=== PATIENT | female | born 1950 | race Caucasian/White ===

== ENCOUNTER 2018-06-22 16:22 | Inpatient (IN) | payer MEDICAID, MEDICARE ==
[2018-06-22] MEDS ORDERED: Sodium Chloride 0.9% 1,000 ML IV ONE (16:24)
[2018-06-22] MEDS ORDERED: Pantoprazole 40 MG Vial IVPUSH ONE (16:24)
[2018-06-22] MEDS ORDERED: Sodium Chloride 0.9% 10 ML Syringe FLUSH PRN ×2 (16:24→17:32)
[2018-06-22] MEDS ORDERED: Sodium Chloride 0.9% 2.5 ML Syringe FLUSH PRN ×2 (16:24→17:32)
[2018-06-22] MEDS ORDERED: Sodium Chloride 0.9% 20 ML ONE (16:42)
--- NOTE | 2018-06-22 16:42 | EDM.PDOC ---
ED HPI GENERAL MEDICAL PROBLEM - General Chief Complaint: Gastrointestinal Problem Stated Complaint: DIARRHEA RECTAL BLEEDING Time Seen by Provider: 06/22/18 16:23 Source of Information: Reports: Patient History Limitations: Reports: No Limitations - History of Present Illness INITIAL COMMENTS - FREE TEXT/NARRATIVE: History of present illness: []Patient has had flu symptoms for about a week and rectal bleeding for 4 days. They are from a [place] but are living in a hotel while her works here and [employer]. She has had rectal bleeding before requiring blood transfusions but her doctors in [place] are unable to diagnose the cause of bleeding. Patient has had liquid bloody stools approximately every hour today. Review of systems: As per history of present illness and below otherwise all systems reviewed and negative. Past medical history: As per history of present illness and as reviewed below otherwise noncontributory. Surgical history: As per history of present illness and as reviewed below otherwise noncontributory. Social history: No reported history of drug or alcohol abuse. Family history: As per history of present illness and as reviewed below otherwise noncontributory. Physical exam: General: Well developed, pale.well nourished in NAD HEENT: Atraumatic, normocephalic, pupils reactive, negative for conjunctival pallor or scleral icterus, mucous membranes moist, throat clear, neck supple, nontender, trachea midline. Lungs: Clear to auscultation, breath sounds equal bilaterally, chest nontender. Heart: S1S2, regular, negative for clicks, rubs, or JVD. Abdomen: NABS, Soft, nondistended, nontender. Negative for masses or hepatosplenomegaly. Negative for costovertebral tenderness. Pelvis: Stable nontender. Genitourinary: Deferred. Rectal: Guaiac positive, brown stool no melena or gross blood Extremities: Atraumatic, negative for cords or calf pain. Neurovascular unremarkable. Neuro: Awake, alert, oriented. Cranial nerves II through XII unremarkable. Cerebellum unremarkable. Motor and sensory unremarkable throughout. Exam nonfocal. Skin: Pale, warm and dry Diagnostics: CBC, chemistry, INR, PT, type and cross, lactic acid, chest x-ray-right lateral infiltrate, EKG Therapeutics: IV hydration, blood transfusion packed RBCs, ED Course: Consulted Dr. Connolly and Dr. Barab Impression: Lower GI bleed, pneumonia Prescriptions: Plan: Admit to MedSurg telemetry, transfuse blood, antibiotics Definitive disposition and diagnosis as appropriate pending reevaluation and review of above. Back Pain Score (Numeric/FACES): 6 - Related Data Allergies Allergy/AdvReac Type Severity Reaction Status Date / Time adhesive tape Allergy Itching Verified 06/22/18 20:43 Latex, Natural Rubber Allergy Itching Verified 06/22/18 20:43 Home Meds: Home Meds . [No Known Home Meds] 06/22/18 [History] ED ROS GENERAL - Review of Systems Review Of Systems: ROS reveals no pertinent complaints other than HPI. ED EXAM, GI/ABD - Physical Exam Exam: See Below (History of present illness) Course - Vital Signs Last Recorded V/S: Last Vital Signs Temp 99.0 F 06/23/18 05:46 Pulse 75 06/23/18 05:46 Resp 18 06/23/18 05:46 BP 125/71 06/23/18 05:46 Pulse Ox 94 L 06/23/18 05:46 - Orders/Labs/Meds Orders: Active Orders 24 hr Category Date Time Status Patient Status [ADT] Stat ADT 06/22/18 17:18 Active Verify Patient Consent Obtain [RC] ASDIRECTED Care 06/22/18 17:09 Active Sodium Chloride 0.9% [Saline Flush] Med 06/22/18 16:24 Active 10 ml FLUSH ASDIRECTED PRN Sodium Chloride 0.9% [Saline Flush] Med 06/22/18 16:24 Active 2.5 ml FLUSH ASDIRECTED PRN Saline Lock Insert [OM.PC] Stat Oth 06/22/18 16:24 Ordered Transfuse Red Blood Cells [COMM] Stat Oth 06/22/18 16:52 Ordered Medication Orders Acetaminophen (Tylenol) 650 mg PO Q4H PRN PRN Reason: Pain (Mild 1-3)/fever Albuterol/Ipratropium (Duoneb 3.0-0.5 Mg/3 Ml) 3 ml NEB Q4HRRT PRN PRN Reason: Shortness Of Breath/wheezing Pantoprazole Sodium 80 mg/ (Sodium Chloride) 100 mls @ 10 mls/hr IV Q12H KELVIN Last Admin: 06/23/18 05:50 Dose: 10 mls/hr Infusion: 06/23/18 04:13 Dose: 10 mls/hr Admin: 06/22/18 18:13 Dose: 10 mls/hr Ceftriaxone Sodium 1 gm/ (Sodium Chloride) 50 mls @ 100 mls/hr IV Q24H [facility] Nicotine (Habitrol) 14 mg TRDERM DAILY KELVIN Last Admin: 06/22/18 19:31 Dose: 14 mg Ondansetron HCl (Zofran Odt) 4 mg PO Q4H PRN PRN Reason: nausea, able to take PO Oxycodone HCl (Oxycodone) 5 mg PO Q4H PRN PRN Reason: Pain (moderate 4-6) Last Admin: 06/23/18 03:54 Dose: 5 mg Admin: 06/23/18 00:14 Dose: 5 mg Admin: 06/22/18 18:54 Dose: 5 mg Sodium Chloride (Saline Flush) 10 ml FLUSH ASDIRECTED PRN PRN Reason: Keep Vein Open Sodium Chloride (Saline Flush) 2.5 ml FLUSH ASDIRECTED PRN PRN Reason: Keep Vein Open Labs: Laboratory Tests 06/22/18 06/22/18 06/22/18 Range/Units 16:31 16:31 16:31 WBC 17.19 H (4.0-11.0) K/uL RBC 3.13 L (4.30-5.90) M/uL Hgb 4.4 L* (12.0-16.0) g/dL Hct 17.9 L (36.0-46.0) % MCV 57.2 L (80.0-98.0) fL MCH 14.1 L (27.0-32.0) pg MCHC 24.6 L (31.0-37.0) g/dL RDW Std Deviation 44.5 (28.0-62.0) fl RDW Coeff of Yara 22 H (11.0-15.0) % Plt Count 350 (150-400) K/uL MPV 9.20 (7.40-12.00) fL Add Manual Diff YES Neutrophils % (Manual) 70 (48.0-80.0) % Band Neutrophils % 23 % Lymphocytes % (Manual) 4 L (16.0-40.0) % Monocytes % (Manual) 3 (0.0-15.0) % Nucleated RBC % 0.4 /100WBC Absolute Seg Neuts 12.0 H (1.4-5.7) Band Neutrophils # 4.0 Lymphocytes # (Manual) 0.7 (0.6-2.4) Monocytes # (Manual) 0.5 (0.0-0.8) Nucleated RBCs # 0 K/uL INR APTT (18.6-31.3) SEC Lactate (0.20-2.00) mmol/L Sodium 136 (136-145) mmol/L Potassium 4.6 (3.5-5.1) mmol/L Chloride 104 (98-107) mmol/L Carbon Dioxide 15.8 L (21.0-32.0) mmol/L BUN 35 H (7.0-18.0) mg/dL Creatinine 2.4 H (0.6-1.0) mg/dL Est Cr Clr Drug Dosing TNP Estimated GFR (MDRD) 20.2 ml/min Glucose 113 H (74-106) mg/dL Calcium 9.3 (8.5-10.1) mg/dL Total Bilirubin 0.6 (0.2-1.0) mg/dL AST 40 H (15-37) IU/L ALT 21 (14-63) IU/L Alkaline Phosphatase 92 (46-116) U/L Total Protein 7.2 (6.4-8.2) g/dL Albumin 3.4 (3.4-5.0) g/dL Globulin 3.8 (2.6-4.0) g/dL Albumin/Globulin Ratio 0.9 (0.9-1.6) Lipase 207 (73-393) U/L Blood Type A NEGATIVE Antibody Screen NEGATIVE Crossmatch See Detail 06/22/18 06/22/18 Range/Units 16:31 17:23 WBC (4.0-11.0) K/uL RBC (4.30-5.90) M/uL Hgb (12.0-16.0) g/dL Hct (36.0-46.0) % MCV (80.0-98.0) fL MCH (27.0-32.0) pg MCHC (31.0-37.0) g/dL RDW Std Deviation (28.0-62.0) fl RDW Coeff of Yara (11.0-15.0) % Plt Count (150-400) K/uL MPV (7.40-12.00) fL Add Manual Diff Neutrophils % (Manual) (48.0-80.0) % Band Neutrophils % % Lymphocytes % (Manual) (16.0-40.0) % Monocytes % (Manual) (0.0-15.0) % Nucleated RBC % /100WBC Absolute Seg Neuts (1.4-5.7) Band Neutrophils # Lymphocytes # (Manual) (0.6-2.4) Monocytes # (Manual) (0.0-0.8) Nucleated RBCs # K/uL INR 1.12 APTT 31.8 H (18.6-31.3) SEC Lactate 1.7 (0.20-2.00) mmol/L Sodium (136-145) mmol/L Potassium (3.5-5.1) mmol/L Chloride (98-107) mmol/L Carbon Dioxide (21.0-32.0) mmol/L BUN (7.0-18.0) mg/dL Creatinine (0.6-1.0) mg/dL Est Cr Clr Drug Dosing Estimated GFR (MDRD) ml/min Glucose (74-106) mg/dL Calcium (8.5-10.1) mg/dL Total Bilirubin (0.2-1.0) mg/dL AST (15-37) IU/L ALT (14-63) IU/L Alkaline Phosphatase (46-116) U/L Total Protein (6.4-8.2) g/dL Albumin (3.4-5.0) g/dL Globulin (2.6-4.0) g/dL Albumin/Globulin Ratio (0.9-1.6) Lipase (73-393) U/L Blood Type Antibody Screen Crossmatch Meds: Medications Generic Name Dose Route Start Last Admin Trade Name Freq PRN Reason Stop Dose Admin Acetaminophen 650 mg 06/22/18 17:32 Tylenol PO Q4H PRN Pain (Mild 1-3)/fever Albuterol/Ipratropium 3 ml 06/22/18 17:32 Duoneb 3.0-0.5 Mg/3 Ml NEB Q4HRRT PRN Shortness Of Breath/wheezing Pantoprazole Sodium 80 mg/ 100 mls @ 10 mls/hr 06/22/18 18:00 06/23/18 05:50 Sodium Chloride IV 10 mls/hr Q12H KELVIN Administration Ceftriaxone Sodium 1 gm/ 50 mls @ 100 mls/hr 06/23/18 09:00 Sodium Chloride IV Q24H KELVIN Nicotine 14 mg 06/22/18 17:45 06/22/18 19:31 Habitrol TRDERM 14 mg DAILY KELVIN Administration Ondansetron HCl 4 mg 06/22/18 17:32 Zofran Odt PO Q4H PRN nausea, able to take PO Oxycodone HCl 5 mg 06/22/18 17:32 06/23/18 03:54 Oxycodone PO 5 mg Q4H PRN Administration Pain (moderate 4-6) Sodium Chloride 10 ml 06/22/18 16:24 Saline Flush FLUSH ASDIRECTED PRN Keep Vein Open Sodium Chloride 2.5 ml 06/22/18 16:24 Saline Flush FLUSH ASDIRECTED PRN Keep Vein Open Discontinued Medications Generic Name Dose Route Start Last Admin Trade Name Freq PRN Reason Stop Dose Admin Acetaminophen 650 mg 06/22/18 17:46 06/23/18 00:08 Tylenol PO 06/22/18 17:47 650 mg NOW ONE Administration Diphenhydramine HCl 50 mg 06/22/18 22:00 06/23/18 00:10 Benadryl IVPUSH 06/22/18 22:01 50 mg ONETIME ONE Administration Furosemide 20 mg 06/22/18 22:00 06/23/18 00:09 Lasix IVPUSH 06/22/18 22:01 20 mg ONETIME ONE Administration Furosemide 20 mg 06/23/18 02:00 06/23/18 05:50 Lasix IVPUSH 06/23/18 02:01 20 mg ONETIME ONE Administration Furosemide Confirm 06/23/18 05:39 06/23/18 06:42 Lasix Administered 06/23/18 05:40 Not Given Dose 20 mg .ROUTE .STK-MED ONE Sodium Chloride 1,000 mls @ 999 mls/hr 06/22/18 16:24 06/22/18 16:44 Normal Saline IV 06/22/18 17:24 999 mls/hr .Bolus ONE Administration Sodium Chloride Confirm 06/22/18 16:42 06/22/18 16:48 Normal Saline Administered 06/22/18 16:43 20 mls/hr Dose Administration 20 mls @ as directed .ROUTE .STK-MED ONE Ceftriaxone Sodium/Dextrose 1 50 mls @ 100 mls/hr 06/22/18 17:26 06/22/18 17: 34 gm/ Premix IV 06/22/18 17:55 100 mls/hr ONETIME ONE Administration Ceftriaxone Sodium/Dextrose 1 50 mls @ 100 mls/hr 06/23/18 09:00 gm/ Premix IV Q24H KELVIN Pantoprazole Sodium 80 mg 06/22/18 16:24 06/22/18 16:47 Protonix Iv IVPUSH 06/22/18 16:25 80 mg .BOLUS ONE Administration Sodium Chloride 20 ml 06/22/18 16:45 Normal Saline IV STAT KELVIN Sodium Chloride 10 ml 06/22/18 17:32 Saline Flush FLUSH ASDIRECTED PRN Keep Vein Open Sodium Chloride 2.5 ml 06/22/18 17:32 Saline Flush FLUSH ASDIRECTED PRN Keep Vein Open Departure - Departure Time of Disposition: 07:58 Disposition: Admitted As Inpatient 67 Condition: Fair Clinical Impression: Anemia - Discharge Information *PRESCRIPTION DRUG MONITORING PROGRAM REVIEWED*: No *COPY OF PRESCRIPTION DRUG MONITORING REPORT IN PATIENT SUHAS: No - My Orders Last 24 Hours: My Active Orders 06/22/18 16:24 Sodium Chloride 0.9% [Saline Flush] 10 ml FLUSH ASDIRECTED PRN Sodium Chloride 0.9% [Saline Flush] 2.5 ml FLUSH ASDIRECTED PRN Saline Lock Insert [OM.PC] Stat 06/22/18 16:52 Transfuse Red Blood Cells [COMM] Stat 06/22/18 17:09 Verify Patient Consent Obtain [RC] ASDIRECTED 06/22/18 17:18 Patient Status [ADT] Stat - Assessment/Plan Last 24 Hours: My Active Orders 06/22/18 16:24 Sodium Chloride 0.9% [Saline Flush] 10 ml FLUSH ASDIRECTED PRN Sodium Chloride 0.9% [Saline Flush] 2.5 ml FLUSH ASDIRECTED PRN Saline Lock Insert [OM.PC] Stat 06/22/18 16:52 Transfuse Red Blood Cells [COMM] Stat 06/22/18 17:09 Verify Patient Consent Obtain [RC] ASDIRECTED 06/22/18 17:18 Patient Status [ADT] Stat
[2018-06-22] MEDS ORDERED: Sodium Chloride 0.9% 10 ML SDV IV SCH (16:45)
--- NOTE | 2018-06-22 17:20 | CR ---
HISTORY: Pain. Shortness of breath. TECHNIQUE: Portable frontal view of the chest. COMPARISON: None. FINDINGS: Patient is rotated. Lungs are hyperinflated. Hazy consolidative airspace opacity in the lateral aspect of the right lung. No consolidation on the left. No pleural effusion or pneumothorax. Cardiomediastinal silhouette size is within normal limits for technique. IMPRESSION: Airspace consolidation in the lateral right lung compatible with pneumonia. Follow-up after treatment is recommended to ensure resolution. Hyperinflated lungs. Dictated by Shyam Fong MD @ Jun 22 2018 5:15PM Signed by Dr. Shyam Fong @ Jun 22 2018 5:17PM
[2018-06-22 17:26] LABS: CHLORIDE,CL 104 mmol/L (98-107); SODIUM,NA 136 mmol/L (136-145)
[2018-06-22] MEDS ORDERED: cefTRIAXone 1 GM in Premix Bag 1 BAG IV ONE (17:26)
--- NOTE | 2018-06-22 17:31 | PCM.HP ---
H&P History of Present Illness - General Date of Service: 06/22/18 Admit Problem/Dx: Admission Diagnosis/Problem Admission Diagnosis/Problem Anemia Source of Information: Patient, Family History Limitations: Reports: No Limitations - History of Present Illness Initial Comments - Free Text/Narative: The patient is a 67-year-old lady who had presented to the emergency department secondary to his severe shortness of breath. The patient was found to be profoundly anemic with a hemoglobin of 4.4 g/dL. The patient is from [facility] and she has been here temporarily while her is at work. The patient had a similar episode last year in which she had required 4 units of blood to be transfused. The patient had a complete colonoscopy with workup and was found to have nothing to account for the bleeding. The patient is also a smoker. The patient has denied any dizziness or lightheadedness. She's had no nausea or vomiting. The patient does say that she's had 3 days of what she called bright red rectal bleeding. The patient in the emergency department had normal stool with Hemoccult positive testing. Surgeon was called from the emergency department. Onset of Symptoms: Reports: Gradual Duration of Symptoms: Reports: Week(s): Improves with: Reports: None Worsens with: Reports: None Associated Symptoms: Reports: Shortness of Breath - Related Data Allergies/Adverse Reactions: Allergies Allergy/AdvReac Type Severity Reaction Status Date / Time No Known Allergies Allergy Verified 06/22/18 16:41 Home Medications: Home Meds . [No Known Home Meds] 06/22/18 [History] Past Medical History HEENT History: Reports: None Cardiovascular History: Reports: None Respiratory History: Reports: COPD Gastrointestinal History: Reports: GI Bleed, Other (See Below) Other Gastrointestinal History: rectal bleeding Genitourinary History: Reports: None Musculoskeletal History: Reports: None Neurological History: Reports: None Psychiatric History: Reports: None Endocrine/Metabolic History: Reports: Hypothyroidism Hematologic History: Reports: Anemia, Blood Transfusion(s) Immunologic History: Reports: None Oncologic (Cancer) History: Reports: None Dermatologic History: Reports: None - Infectious Disease History Infectious Disease History: Reports: Chicken Pox, Measles, Mumps Social & Family History - Family History Family Medical History: Noncontributory - Tobacco Use Smoking Status *Q: Current Every Day Smoker Years of Tobacco use: 40 Packs/Tins Daily: 0.5 - Recreational Drug Use Recreational Drug Use: No - Living Situation & Occupation Living situation: Reports: , with Spouse Occupation: Unemployed H&P Review of Systems - Review of Systems: Review Of Systems: See Below General: Reports: Weakness, Fatigue HEENT: Reports: No Symptoms Pulmonary: Reports: Shortness of Breath Cardiovascular: Reports: No Symptoms Gastrointestinal: Reports: Bloody Stool Genitourinary: Reports: No Symptoms Musculoskeletal: Reports: No Symptoms Skin: Reports: Pallor Psychiatric: Reports: No Symptoms Neurological: Reports: No Symptoms Hematologic/Lymphatic: Reports: Anemia, Easy Bleeding Immunologic: Reports: No Symptoms Exam - Exam Exam: See Below - Vital Signs Vital Signs: Last Vital Signs Temp 36.6 C 06/22/18 16:37 Pulse 91 06/22/18 16:59 Resp 20 06/22/18 16:59 BP 109/52 L 06/22/18 16:59 Pulse Ox 98 06/22/18 16:59 - Exam Quality Assessment: Supplemental Oxygen General: Alert, Oriented, Cooperative, Mild Distress HEENT: EACs Clear, EOMI, Nares Patent (Pale), Pupils Equal, Pupils Reactive. No : Conjunctiva Clear (Pallor), Mucosa Moist & [place] Neck: Supple, Trachea Midline Lungs: Clear to Auscultation, Decreased Breath Sounds, Other (Markedly increased AP diameter) Cardiovascular: Regular Rate, Regular Rhythm GI/Abdominal Exam: Normal Bowel Sounds, Soft, Non-Tender, No Distention (Female) Exam: Deferred Rectal (Female) Exam: Deferred Back Exam: No: Normal Inspection (Rotoscoliosis), Full Range of Motion ( Decreased normal range of motion) Extremities: Normal Inspection, Normal Range of Motion, No Pedal Edema Skin: Warm, Dry, Intact Neurological: Cranial Nerves Intact Neuro Extensive - Mental Status: Alert, Oriented x3 Psychiatric: Alert, Normal Affect, Normal Mood - Patient Data Lab Results Last 24 hrs: Laboratory Results - last 24 hr 06/22/18 06/22/18 Range/Units 16:31 17:23 WBC 17.19 H (4.0-11.0) K/uL RBC 3.13 L (4.30-5.90) M/uL Hgb 4.4 L* (12.0-16.0) g/dL Hct 17.9 L (36.0-46.0) % MCV 57.2 L (80.0-98.0) fL MCH 14.1 L (27.0-32.0) pg MCHC 24.6 L (31.0-37.0) g/dL RDW Std Deviation 44.5 (28.0-62.0) fl RDW Coeff of Yara 22 H (11.0-15.0) % Plt Count 350 (150-400) K/uL MPV 9.20 (7.40-12.00) fL Add Manual Diff YES Nucleated RBC % 0.4 /100WBC Nucleated RBCs # 0 K/uL Lactate 1.7 (0.20-2.00) mmol/L Result Diagrams: 06/22/18 16:31 06/22/18 16:31 - Problem List (1) Anemia due to chronic blood loss SNOMED Code(s): 374392252 ICD Code: D50.0 - IRON DEFICIENCY ANEMIA SECONDARY TO BLOOD LOSS (CHRONIC) Status: Acute Priority: High Current Visit: Yes Problem Details: Hemoglobin 4.4 g/dL (2) Pneumonia involving right lung SNOMED Code(s): 976149575 ICD Code: J18.9 - PNEUMONIA, UNSPECIFIED ORGANISM Status: Acute Priority : High Current Visit: Yes Qualifiers: Pneumonia type: due to unspecified organism Lung location: unspecified part of lung Qualified Code(s): J18.9 - Pneumonia, unspecified organism (3) Hypothyroidism (acquired) SNOMED Code(s): 101122495 ICD Code: E03.9 - HYPOTHYROIDISM, UNSPECIFIED Status: Chronic Priority: High Current Visit: Yes (4) Fecal occult blood test positive SNOMED Code(s): 39168424 ICD Code: R19.5 - OTHER FECAL ABNORMALITIES Status: Chronic Priority: High Current Visit: Yes (5) Emphysema of lung SNOMED Code(s): 81727502 ICD Code: J43.9 - EMPHYSEMA, UNSPECIFIED Status: Chronic Priority: High Current Visit: Yes Qualifiers: Emphysema type: unspecified Qualified Code(s): J43.9 - Emphysema, unspecified (6) Renal insufficiency SNOMED Code(s): 391409666, 923974792 ICD Code: N28.9 - DISORDER OF KIDNEY AND URETER, UNSPECIFIED Status: Acute Current Visit: Yes (7) Tobacco abuse SNOMED Code(s): 323466540 ICD Code: Z72.0 - TOBACCO USE Status: Acute Current Visit: Yes Problem List Initiated/Reviewed/Updated: Yes Orders Last 24hrs: Active Orders 24 hr Category Date Time Status Patient Status [ADT] Stat ADT 06/22/18 17:18 Active EKG Documentation Completion [RC] STAT Care 06/22/18 17:13 Active Verify Patient Consent Obtain [RC] ASDIRECTED Care 06/22/18 17:09 Active CBC WITH AUTO DIFF [HEME] Stat Lab 06/22/18 16:31 Results COMPREHENSIVE METABOLIC PN,CMP [CHEM] Stat Lab 06/22/18 16:31 Received CULTURE BLOOD [BC] Stat Lab 06/22/18 17:26 Ordered CULTURE BLOOD [BC] Stat Lab 06/22/18 17:26 Ordered INR,PT,PROTHROMBIN TIME [COAG] Stat Lab 06/22/18 16:31 Received LIPASE [CHEM] Stat Lab 06/22/18 16:31 Received PTT,PARTIAL THROMBOPLSTIN TIME [COAG] Stat Lab 06/22/18 16:31 Received RED BLOOD CELLS LP [BBK] Stat Lab 06/22/18 16:31 Received TYPE AND SCREEN [BBK] Stat Lab 06/22/18 16:31 Received Sodium Chloride 0.9% [Normal Saline] Med 06/22/18 16:45 Active 20 ml IV STAT Sodium Chloride 0.9% [Saline Flush] Med 06/22/18 16:24 Active 10 ml FLUSH ASDIRECTED PRN Sodium Chloride 0.9% [Saline Flush] Med 06/22/18 16:24 Active 2.5 ml FLUSH ASDIRECTED PRN cefTRIAXone [Rocephin in Dextrose,Iso-Osm 1 GM/50 ML] 1 Med 06/22/18 17:26 Active gm Premix Bag 1 bag IV ONETIME Blood Culture x2 Reflex Set [OM.PC] Stat Oth 06/22/18 17:26 Ordered Saline Lock Insert [OM.PC] Stat Oth 06/22/18 16:24 Ordered Transfuse Red Blood Cells [COMM] Stat Oth 06/22/18 16:52 Ordered Medication Orders Ceftriaxone Sodium/Dextrose 1 (gm/ Premix) 50 mls @ 100 mls/hr IV ONETIME ONE Stop: 06/22/18 17:55 Sodium Chloride (Saline Flush) 10 ml FLUSH ASDIRECTED PRN PRN Reason: Keep Vein Open Sodium Chloride (Saline Flush) 2.5 ml FLUSH ASDIRECTED PRN PRN Reason: Keep Vein Open Sodium Chloride (Normal Saline) 20 ml IV STAT KELVIN Assessment/Plan Comment:: The patient is a 67-year-old lady who presented to the emergency department after concern for shortness of breath. The patient was noted to have a hemoglobin of 4.4 g/dL. The patient had 2 units of packed red blood cells ordered through the emergency department. I have ordered 2 additional units of packed red blood cells along with Benadryl 50 mg by mouth along with Tylenol 650 mg by mouth before third set of blood transfusion along with 20 mg of Lasix after the second and fourth units of blood. This is done to prevent flash pulmonary edema. Interestingly, patient does have evidence of a consolidation in her right lateral lung and she'll be treated for pneumonia. I've elected use ceftriaxone for the patient. She also be fluid resuscitated gently as she is also receiving blood products. The patient also has a BUN/creatinine and creatinine of 35 and 2.4 respectively which indicates an estimated GFR of 20 mL/ m. With blood products and fluid resuscitation this should improve. I've ordered repeat laboratory studies for the morning. Patient also has an elevated WBC and this is likely secondary to dehydration rather than sepsis. Her lactate is at 1.7 which points against sepsis. Also the patient's vital signs are normal. Her pulse rate was in the 80s on monitor. Her blood pressure on monitor was 129/84. As a result of these stable vital signs the patient was not placed in ICU but on medical surgery floor as an inpatient. The patient will also not have DVT prophylaxis secondary to active bleeding and risk of fall. The patient also has been strongly counseled with regard to smoking cessation and nicotine patches been afforded for the patient. To help exclude active bleeding I have ordered H&H every 6 hours after blood transfusion in order to monitor for drop in hemoglobin. The patient has been recommended to follow up with primary care physician in [place]. She has also been noncompliant with her medications. She does have a history of hypothyroidism and her medications should be verified and oriented be continued. She is also being kept on telemetry. Her medications will be adjusted as conditions and information indicates.
[2018-06-22] MEDS ORDERED: Acetaminophen 325 MG Tab PO PRN (17:32)
[2018-06-22] MEDS ORDERED: Albuterol/Ipratropium 3.0-0.5 MG/3 ML Neb Soln NEB PRN (17:32)
[2018-06-22] MEDS ORDERED: Ondansetron 4 MG Tab.DIS PO PRN (17:32)
[2018-06-22] MEDS ORDERED: Acetaminophen 325 MG Tab PO ONE (17:46)
[2018-06-22] MEDS: Pantoprazole 80 MG in Sodium Chloride 0.9% 100 ML IV SCH (18:13)
[2018-06-22] MEDS: oxyCODONE 5 MG Tab PO PRN (18:54)
[2018-06-22] MEDS: Nicotine 14 MG/24 Hr Patch TRDERM SCH (19:31)
[2018-06-22] MEDS ORDERED: Furosemide 20 MG/2 ML VIAL IVPUSH ONE (22:00)
[2018-06-22] MEDS ORDERED: diphenhydrAMINE 50 MG/ML SDV IVPUSH ONE (22:00)
[2018-06-23] MEDS: oxyCODONE 5 MG Tab PO PRN ×5 (00:14→22:48)
[2018-06-23] MEDS ORDERED: Furosemide 20 MG/2 ML VIAL IVPUSH ONE (02:00)
[2018-06-23] MEDS ORDERED: Furosemide 20 MG/2 ML VIAL ONE (05:39)
[2018-06-23] MEDS: Pantoprazole 80 MG in Sodium Chloride 0.9% 100 ML IV SCH (05:50)
[2018-06-23] MEDS ORDERED: cefTRIAXone 1 GM in Sodium Chloride 0.9% 50 ML IV SCH ×2 (07:15→09:00)
[2018-06-23] MEDS: Nicotine 14 MG/24 Hr Patch TRDERM SCH (08:05)
[2018-06-23] MEDS ORDERED: cefTRIAXone 1 GM in Premix Bag 1 BAG IV SCH (09:00)
--- NOTE | 2018-06-23 09:17 | PCM.PN ---
- General Info Date of Service: 06/23/18 Subjective Update: Patient is feeling slightly better after getting 4 units of blood transfusion still feeling fatigued and tired. Denying any diarrhea or abdominal pain or shortness of breath currently. - Patient Data Vitals - Most Recent: Last Vital Signs Temp 37.2 C 06/23/18 07:00 Pulse 80 06/23/18 07:00 Resp 20 06/23/18 07:00 BP 144/75 H 06/23/18 07:00 Pulse Ox 94 L 06/23/18 07:00 Weight - Most Recent: 60.781 kg I&O - Last 24 Hours: Intake & Output 06/22/18 06/23/18 06/23/18 22:59 06:59 14:59 Intake Total 365 1735 Output Total 700 Balance 365 1035 Lab Results Last 24 Hours: Laboratory Results - last 24 hr 06/22/18 06/22/18 06/22/18 Range/Units 16:31 16:31 16:31 WBC 17.19 H (4.0-11.0) K/uL RBC 3.13 L (4.30-5.90) M/uL Hgb 4.4 L* (12.0-16.0) g/dL Hct 17.9 L (36.0-46.0) % MCV 57.2 L (80.0-98.0) fL MCH 14.1 L (27.0-32.0) pg MCHC 24.6 L (31.0-37.0) g/dL RDW Std Deviation 44.5 (28.0-62.0) fl RDW Coeff of Yara 22 H (11.0-15.0) % Plt Count 350 (150-400) K/uL MPV 9.20 (7.40-12.00) fL Add Manual Diff YES Neutrophils % (Manual) 70 (48.0-80.0) % Band Neutrophils % 23 % Lymphocytes % (Manual) 4 L (16.0-40.0) % Monocytes % (Manual) 3 (0.0-15.0) % Eosinophils % (Manual) (0.0-7.0) % Nucleated RBC % 0.4 /100WBC Absolute Seg Neuts 12.0 H (1.4-5.7) Band Neutrophils # 4.0 Lymphocytes # (Manual) 0.7 (0.6-2.4) Monocytes # (Manual) 0.5 (0.0-0.8) Eosinophils # (Manual) (0.0-0.7) Nucleated RBCs # 0 K/uL INR APTT (18.6-31.3) SEC Lactate (0.20-2.00) mmol/L Sodium 136 (136-145) mmol/L Potassium 4.6 (3.5-5.1) mmol/L Chloride 104 (98-107) mmol/L Carbon Dioxide 15.8 L (21.0-32.0) mmol/L BUN 35 H (7.0-18.0) mg/dL Creatinine 2.4 H (0.6-1.0) mg/dL Est Cr Clr Drug Dosing TNP Estimated GFR (MDRD) 20.2 ml/min Glucose 113 H (74-106) mg/dL Calcium 9.3 (8.5-10.1) mg/dL Total Bilirubin 0.6 (0.2-1.0) mg/dL AST 40 H (15-37) IU/L ALT 21 (14-63) IU/L Alkaline Phosphatase 92 (46-116) U/L Total Protein 7.2 (6.4-8.2) g/dL Albumin 3.4 (3.4-5.0) g/dL Globulin 3.8 (2.6-4.0) g/dL Albumin/Globulin Ratio 0.9 (0.9-1.6) Lipase 207 (73-393) U/L Blood Type A NEGATIVE Antibody Screen NEGATIVE Crossmatch See Detail 06/22/18 06/22/18 06/23/18 Range/Units 16:31 17:23 06:21 WBC 11.53 H (4.0-11.0) K/uL RBC 4.33 (4.30-5.90) M/uL Hgb 9.3 L (12.0-16.0) g/dL Hct 29.9 L (36.0-46.0) % MCV 69.1 L (80.0-98.0) fL MCH 21.5 L (27.0-32.0) pg MCHC 31.1 (31.0-37.0) g/dL RDW Std Deviation 66.1 H (28.0-62.0) fl RDW Coeff of Yara 26 H (11.0-15.0) % Plt Count 241 (150-400) K/uL MPV (7.40-12.00) fL Add Manual Diff YES Neutrophils % (Manual) 70 (48.0-80.0) % Band Neutrophils % 15 % Lymphocytes % (Manual) 10 L (16.0-40.0) % Monocytes % (Manual) 4 (0.0-15.0) % Eosinophils % (Manual) 1 (0.0-7.0) % Nucleated RBC % 0.4 /100WBC Absolute Seg Neuts 8.1 H (1.4-5.7) Band Neutrophils # 1.7 Lymphocytes # (Manual) 1.2 (0.6-2.4) Monocytes # (Manual) 0.5 (0.0-0.8) Eosinophils # (Manual) 0.1 (0.0-0.7) Nucleated RBCs # 0 K/uL INR 1.12 APTT 31.8 H (18.6-31.3) SEC Lactate 1.7 (0.20-2.00) mmol/L Sodium (136-145) mmol/L Potassium (3.5-5.1) mmol/L Chloride (98-107) mmol/L Carbon Dioxide (21.0-32.0) mmol/L BUN (7.0-18.0) mg/dL Creatinine (0.6-1.0) mg/dL Est Cr Clr Drug Dosing Estimated GFR (MDRD) ml/min Glucose (74-106) mg/dL Calcium (8.5-10.1) mg/dL Total Bilirubin (0.2-1.0) mg/dL AST (15-37) IU/L ALT (14-63) IU/L Alkaline Phosphatase (46-116) U/L Total Protein (6.4-8.2) g/dL Albumin (3.4-5.0) g/dL Globulin (2.6-4.0) g/dL Albumin/Globulin Ratio (0.9-1.6) Lipase (73-393) U/L Blood Type Antibody Screen Crossmatch 06/23/18 Range/Units 06:21 WBC (4.0-11.0) K/uL RBC (4.30-5.90) M/uL Hgb (12.0-16.0) g/dL Hct (36.0-46.0) % MCV (80.0-98.0) fL MCH (27.0-32.0) pg MCHC (31.0-37.0) g/dL RDW Std Deviation (28.0-62.0) fl RDW Coeff of Yara (11.0-15.0) % Plt Count (150-400) K/uL MPV (7.40-12.00) fL Add Manual Diff Neutrophils % (Manual) (48.0-80.0) % Band Neutrophils % % Lymphocytes % (Manual) (16.0-40.0) % Monocytes % (Manual) (0.0-15.0) % Eosinophils % (Manual) (0.0-7.0) % Nucleated RBC % /100WBC Absolute Seg Neuts (1.4-5.7) Band Neutrophils # Lymphocytes # (Manual) (0.6-2.4) Monocytes # (Manual) (0.0-0.8) Eosinophils # (Manual) (0.0-0.7) Nucleated RBCs # K/uL INR APTT (18.6-31.3) SEC Lactate (0.20-2.00) mmol/L Sodium 137 (136-145) mmol/L Potassium 4.1 (3.5-5.1) mmol/L Chloride 106 (98-107) mmol/L Carbon Dioxide 17.2 L (21.0-32.0) mmol/L BUN 33 H (7.0-18.0) mg/dL Creatinine 2.1 H (0.6-1.0) mg/dL Est Cr Clr Drug Dosing 25.28 Estimated GFR (MDRD) 23.6 ml/min Glucose 101 (74-106) mg/dL Calcium 9.1 (8.5-10.1) mg/dL Total Bilirubin 1.6 H (0.2-1.0) mg/dL AST 33 (15-37) IU/L ALT 18 (14-63) IU/L Alkaline Phosphatase 84 (46-116) U/L Total Protein 6.7 (6.4-8.2) g/dL Albumin 3.0 L (3.4-5.0) g/dL Globulin 3.7 (2.6-4.0) g/dL Albumin/Globulin Ratio 0.8 L (0.9-1.6) Lipase (73-393) U/L Blood Type Antibody Screen Crossmatch Tony Results Last 24 Hours: Microbiology 06/23/18 08:45 Stool Occult Blood (TONY) - Final Stool / Feces POSITIVE OCCULT BLOOD Med Orders - Current: Current Medications Acetaminophen (Tylenol) 650 mg PO Q4H PRN PRN Reason: Pain (Mild 1-3)/fever Albuterol/Ipratropium (Duoneb 3.0-0.5 Mg/3 Ml) 3 ml NEB Q4HRRT PRN PRN Reason: Shortness Of Breath/wheezing Bisacodyl (Dulcolax) 20 mg PO ONETIME ONE Stop: 06/23/18 12:01 Pantoprazole Sodium 80 mg/ (Sodium Chloride) 100 mls @ 10 mls/hr IV Q12H [facility] Last Admin: 06/23/18 05:50 Dose: 10 mls/hr Ceftriaxone Sodium 1 gm/ (Sodium Chloride) 50 mls @ 100 mls/hr IV Q24H [facility] Last Admin: 06/23/18 08:06 Dose: 100 mls/hr Nicotine (Habitrol) 14 mg TRDERM DAILY [facility] Last Admin: 06/23/18 08:05 Dose: 14 mg Ondansetron HCl (Zofran Odt) 4 mg PO Q4H PRN PRN Reason: nausea, able to take PO Oxycodone HCl (Oxycodone) 5 mg PO Q4H PRN PRN Reason: Pain (moderate 4-6) Last Admin: 06/23/18 08:12 Dose: 5 mg Polyethylene Glycol (Miralax) 238 gm PO ONETIME ONE Stop: 06/24/18 15:01 Polyethylene Glycol (Miralax) 238 gm PO ONETIME ONE Stop: 06/23/18 17:01 Sodium Chloride (Saline Flush) 10 ml FLUSH ASDIRECTED PRN PRN Reason: Keep Vein Open Sodium Chloride (Saline Flush) 2.5 ml FLUSH ASDIRECTED PRN PRN Reason: Keep Vein Open Discontinued Medications Acetaminophen (Tylenol) 650 mg PO NOW ONE Stop: 06/22/18 17:47 Last Admin: 06/23/18 00:08 Dose: 650 mg Diphenhydramine HCl (Benadryl) 50 mg IVPUSH ONETIME ONE Stop: 06/22/18 22:01 Last Admin: 06/23/18 00:10 Dose: 50 mg Furosemide (Lasix) 20 mg IVPUSH ONETIME ONE Stop: 06/22/18 22:01 Last Admin: 06/23/18 00:09 Dose: 20 mg Furosemide (Lasix) 20 mg IVPUSH ONETIME ONE Stop: 06/23/18 02:01 Last Admin: 06/23/18 05:50 Dose: 20 mg Furosemide (Lasix) Confirm Administered Dose 20 mg .ROUTE .STK-MED ONE Stop: 06/23/18 05:40 Last Admin: 06/23/18 06:42 Dose: Not Given Sodium Chloride (Normal Saline) 1,000 mls @ 999 mls/hr IV .Bolus ONE Stop: 06/22/18 17:24 Last Admin: 06/22/18 16:44 Dose: 999 mls/hr Sodium Chloride (Normal Saline) Confirm Administered Dose 20 mls @ as directed .ROUTE .STK-MED ONE Stop: 06/22/18 16:43 Last Admin: 06/22/18 16:48 Dose: 20 mls/hr Ceftriaxone Sodium/Dextrose 1 (gm/ Premix) 50 mls @ 100 mls/hr IV ONETIME ONE Stop: 06/22/18 17:55 Last Admin: 06/22/18 17:34 Dose: 100 mls/hr Ceftriaxone Sodium/Dextrose 1 (gm/ Premix) 50 mls @ 100 mls/hr IV Q24H KELVIN Pantoprazole Sodium (Protonix Iv) 80 mg IVPUSH .BOLUS ONE Stop: 06/22/18 16:25 Last Admin: 06/22/18 16:47 Dose: 80 mg Sodium Chloride (Normal Saline) 20 ml IV STAT KELVIN Sodium Chloride (Saline Flush) 10 ml FLUSH ASDIRECTED PRN PRN Reason: Keep Vein Open Sodium Chloride (Saline Flush) 2.5 ml FLUSH ASDIRECTED PRN PRN Reason: Keep Vein Open - Exam Quality Assessment: Supplemental Oxygen General: Alert, Oriented Lungs: Clear to Auscultation, Decreased Breath Sounds Cardiovascular: Regular Rate, Regular Rhythm GI/Abdominal Exam: Soft, Non-Tender - Problem List Review Problem List Initiated/Reviewed/Updated: Yes - My Orders Last 24 Hours: My Active Orders 06/23/18 12:00 Bisacodyl [Dulcolax] 20 mg PO ONETIME ONE 06/23/18 17:00 Polyethylene Glycol 3350 [MiraLAX] 238 gm PO ONETIME ONE 06/23/18 Lunch Clear Liquid Diet [DIET] 06/24/18 15:00 Polyethylene Glycol 3350 [MiraLAX] 238 gm PO ONETIME ONE - Plan Plan:: The patient is a 67-year-old lady who presented to the emergency department after concern for shortness of breath. The patient was noted to have a hemoglobin of 4.4 g/dL. The patient had 2 units of packed red blood cells ordered through the emergency department. I have ordered 2 additional units of packed red blood cells along with Benadryl 50 mg by mouth along with Tylenol 650 mg by mouth before third set of blood transfusion along with 20 mg of Lasix after the second and fourth units of blood. This is done to prevent flash pulmonary edema. Interestingly, patient does have evidence of a consolidation in her right lateral lung and she'll be treated for pneumonia. I've elected use ceftriaxone for the patient. She also be fluid resuscitated gently as she is also receiving blood products. The patient also has a BUN/creatinine and creatinine of 35 and 2.4 respectively which indicates an estimated GFR of 20 mL/ m. With blood products and fluid resuscitation this should improve. I've ordered repeat laboratory studies for the morning. Patient also has an elevated WBC and this is likely secondary to dehydration rather than sepsis. Her lactate is at 1.7 which points against sepsis. Also the patient's vital signs are normal. Her pulse rate was in the 80s on monitor. Her blood pressure on monitor was 129/84. As a result of these stable vital signs the patient was not placed in ICU but on medical surgery floor as an inpatient. The patient will also not have DVT prophylaxis secondary to active bleeding and risk of fall. The patient also has been strongly counseled with regard to smoking cessation and nicotine patches been afforded for the patient. To help exclude active bleeding I have ordered H&H every 6 hours after blood transfusion in order to monitor for drop in hemoglobin. The patient has been recommended to follow up with primary care physician in [place]. She has also been noncompliant with her medications. She does have a history of hypothyroidism and her medications should be verified and oriented be continued. She is also being kept on telemetry. Her medications will be adjusted as conditions and information indicates. Problems: #1. Severe anemia likely etiology is lower GI in nature -Patient's hemoglobin has risen to 9.3 since the 4 units of RBC. Patient to receive another unit of RBC with a goal of about 10 for her hemoglobin -Patient has been assessed by general surgery and she'll have a colonoscopy done tomorrow. Patient to have bowel prep done starting today. #2. COPD -Patient to be continued to be followed for her COPD, patient currently on azithromycin 250 mg by mouth dose -Nasal swab for influenza to also be done today -Patient on O2 shall continue to follow and treat as needed.
[2018-06-23] MEDS ORDERED: Bisacodyl 5 MG Tab PO ONE (12:00)
[2018-06-23] MEDS: Azithromycin 250 MG Tab PO SCH (12:17)
--- NOTE | 2018-06-23 12:42 | PCM.CONS ---
H&P History of Present Illness - General Date of Service: 06/23/18 Admit Problem/Dx: Admission Diagnosis/Problem Admission Diagnosis/Problem Anemia Source of Information: Patient History Limitations: Reports: No Limitations - History of Present Illness Initial Comments - Free Text/Narative: Patient is a 67 year old female with a history of GI bleed who presented to the ER with hematochezia and lightheadedness. She complained of bright red liquid stool. Hemoglobin in the emergency room was 4.4. She had a similar bleed approximately 2 years ago. She was living in [place] at the time. She underwent an EGD and colonoscopy and states that both were negative. She does not remember whether she had any benign findings at the time. 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 She has hypothyroidism which she has not been treating. She is a longtime smoker and has features to suggest that she has undiagnosed or untreated COPD. She denies any change in her bowel habits up to this point. She denies any sick contacts. She was given 4 units of blood overnight and her hemoglobin is now 9.3. She's no longer dizzy. Back Pain Score (Numeric/FACES): 6 - Related Data Allergies/Adverse Reactions: Allergies Allergy/AdvReac Type Severity Reaction Status Date / Time adhesive tape Allergy Itching Verified 06/22/18 20:43 Latex, Natural Rubber Allergy Itching Verified 06/22/18 20:43 Home Medications: Home Meds . [No Known Home Meds] 06/22/18 [History] Past Medical History HEENT History: Reports: None Cardiovascular History: Reports: None Respiratory History: Reports: COPD Gastrointestinal History: Reports: GI Bleed, Other (See Below) Other Gastrointestinal History: rectal bleeding Genitourinary History: Reports: None Musculoskeletal History: Reports: None Neurological History: Reports: None Psychiatric History: Reports: None Endocrine/Metabolic History: Reports: Hypothyroidism Hematologic History: Reports: Anemia, Blood Transfusion(s) Immunologic History: Reports: None Oncologic (Cancer) History: Reports: None Dermatologic History: Reports: None - Infectious Disease History Infectious Disease History: Reports: Chicken Pox, Measles, Mumps - Past Surgical History Head Surgeries/Procedures: Reports: None Social & Family History - Family History Family Medical History: Noncontributory - Tobacco Use Smoking Status *Q: Current Every Day Smoker Years of Tobacco use: 40 Packs/Tins Daily: 0.5 - Caffeine Use Caffeine Use: Reports: Soda, Tea - Recreational Drug Use Recreational Drug Use: No - Living Situation & Occupation Living situation: Reports: , with Spouse Occupation: Unemployed H&P Review of Systems - Review of Systems: Review Of Systems: ROS reveals no pertinent complaints other than HPI. Exam - Exam Exam: See Below - Vital Signs Vital Signs: Last Vital Signs Temp 36.4 C 06/23/18 11:00 Pulse 81 06/23/18 11:00 Resp 16 06/23/18 11:00 BP 119/61 06/23/18 11:00 Pulse Ox 95 06/23/18 11:00 Weight: 60.781 kg - Exam Quality Assessment: Supplemental Oxygen General: Alert, Oriented, Cooperative HEENT: Conjunctiva Clear, Mucosa Moist & [place], Pupils Equal, Pupils Reactive Neck: Supple, Trachea Midline Lungs: Clear to Auscultation, Decreased Breath Sounds (To bilateral bases), Other (Patient has a barrel chest and appears to use accessory muscles when breathing. There is no pursed lip breathing. No wheezing.) Cardiovascular: Regular Rate, Regular Rhythm GI/Abdominal Exam: Soft, Non-Tender, No Distention, No Mass (Female) Exam: Normal External Exam Rectal (Female) Exam: Normal Exam, Normal Rectal Tone, Heme - Stool Back Exam: Normal Inspection, Full Range of Motion Extremities: Normal Inspection Skin: Warm, Dry, Intact Neuro Extensive - Mental Status: Alert, Oriented x3 - Patient Data Lab Results Last 24 hrs: Laboratory Results - last 24 hr 06/22/18 06/22/18 06/22/18 Range/Units 16:31 16:31 16:31 WBC 17.19 H (4.0-11.0) K/uL RBC 3.13 L (4.30-5.90) M/uL Hgb 4.4 L* (12.0-16.0) g/dL Hct 17.9 L (36.0-46.0) % MCV 57.2 L (80.0-98.0) fL MCH 14.1 L (27.0-32.0) pg MCHC 24.6 L (31.0-37.0) g/dL RDW Std Deviation 44.5 (28.0-62.0) fl RDW Coeff of Yara 22 H (11.0-15.0) % Plt Count 350 (150-400) K/uL MPV 9.20 (7.40-12.00) fL Add Manual Diff YES Neutrophils % (Manual) 70 (48.0-80.0) % Band Neutrophils % 23 % Lymphocytes % (Manual) 4 L (16.0-40.0) % Monocytes % (Manual) 3 (0.0-15.0) % Eosinophils % (Manual) (0.0-7.0) % Nucleated RBC % 0.4 /100WBC Absolute Seg Neuts 12.0 H (1.4-5.7) Band Neutrophils # 4.0 Lymphocytes # (Manual) 0.7 (0.6-2.4) Monocytes # (Manual) 0.5 (0.0-0.8) Eosinophils # (Manual) (0.0-0.7) Nucleated RBCs # 0 K/uL INR APTT (18.6-31.3) SEC Lactate (0.20-2.00) mmol/L Sodium 136 (136-145) mmol/L Potassium 4.6 (3.5-5.1) mmol/L Chloride 104 (98-107) mmol/L Carbon Dioxide 15.8 L (21.0-32.0) mmol/L BUN 35 H (7.0-18.0) mg/dL Creatinine 2.4 H (0.6-1.0) mg/dL Est Cr Clr Drug Dosing TNP Estimated GFR (MDRD) 20.2 ml/min Glucose 113 H (74-106) mg/dL Calcium 9.3 (8.5-10.1) mg/dL Total Bilirubin 0.6 (0.2-1.0) mg/dL AST 40 H (15-37) IU/L ALT 21 (14-63) IU/L Alkaline Phosphatase 92 (46-116) U/L Total Protein 7.2 (6.4-8.2) g/dL Albumin 3.4 (3.4-5.0) g/dL Globulin 3.8 (2.6-4.0) g/dL Albumin/Globulin Ratio 0.9 (0.9-1.6) Lipase 207 (73-393) U/L Blood Type A NEGATIVE Antibody Screen NEGATIVE Crossmatch See Detail 06/22/18 06/22/18 06/23/18 Range/Units 16:31 17:23 06:21 WBC 11.53 H (4.0-11.0) K/uL RBC 4.33 (4.30-5.90) M/uL Hgb 9.3 L (12.0-16.0) g/dL Hct 29.9 L (36.0-46.0) % MCV 69.1 L (80.0-98.0) fL MCH 21.5 L (27.0-32.0) pg MCHC 31.1 (31.0-37.0) g/dL RDW Std Deviation 66.1 H (28.0-62.0) fl RDW Coeff of Yara 26 H (11.0-15.0) % Plt Count 241 (150-400) K/uL MPV (7.40-12.00) fL Add Manual Diff YES Neutrophils % (Manual) 70 (48.0-80.0) % Band Neutrophils % 15 % Lymphocytes % (Manual) 10 L (16.0-40.0) % Monocytes % (Manual) 4 (0.0-15.0) % Eosinophils % (Manual) 1 (0.0-7.0) % Nucleated RBC % 0.4 /100WBC Absolute Seg Neuts 8.1 H (1.4-5.7) Band Neutrophils # 1.7 Lymphocytes # (Manual) 1.2 (0.6-2.4) Monocytes # (Manual) 0.5 (0.0-0.8) Eosinophils # (Manual) 0.1 (0.0-0.7) Nucleated RBCs # 0 K/uL INR 1.12 APTT 31.8 H (18.6-31.3) SEC Lactate 1.7 (0.20-2.00) mmol/L Sodium (136-145) mmol/L Potassium (3.5-5.1) mmol/L Chloride (98-107) mmol/L Carbon Dioxide (21.0-32.0) mmol/L BUN (7.0-18.0) mg/dL Creatinine (0.6-1.0) mg/dL Est Cr Clr Drug Dosing Estimated GFR (MDRD) ml/min Glucose (74-106) mg/dL Calcium (8.5-10.1) mg/dL Total Bilirubin (0.2-1.0) mg/dL AST (15-37) IU/L ALT (14-63) IU/L Alkaline Phosphatase (46-116) U/L Total Protein (6.4-8.2) g/dL Albumin (3.4-5.0) g/dL Globulin (2.6-4.0) g/dL Albumin/Globulin Ratio (0.9-1.6) Lipase (73-393) U/L Blood Type Antibody Screen Crossmatch 06/23/18 Range/Units 06:21 WBC (4.0-11.0) K/uL RBC (4.30-5.90) M/uL Hgb (12.0-16.0) g/dL Hct (36.0-46.0) % MCV (80.0-98.0) fL MCH (27.0-32.0) pg MCHC (31.0-37.0) g/dL RDW Std Deviation (28.0-62.0) fl RDW Coeff of Yara (11.0-15.0) % Plt Count (150-400) K/uL MPV (7.40-12.00) fL Add Manual Diff Neutrophils % (Manual) (48.0-80.0) % Band Neutrophils % % Lymphocytes % (Manual) (16.0-40.0) % Monocytes % (Manual) (0.0-15.0) % Eosinophils % (Manual) (0.0-7.0) % Nucleated RBC % /100WBC Absolute Seg Neuts (1.4-5.7) Band Neutrophils # Lymphocytes # (Manual) (0.6-2.4) Monocytes # (Manual) (0.0-0.8) Eosinophils # (Manual) (0.0-0.7) Nucleated RBCs # K/uL INR APTT (18.6-31.3) SEC Lactate (0.20-2.00) mmol/L Sodium 137 (136-145) mmol/L Potassium 4.1 (3.5-5.1) mmol/L Chloride 106 (98-107) mmol/L Carbon Dioxide 17.2 L (21.0-32.0) mmol/L BUN 33 H (7.0-18.0) mg/dL Creatinine 2.1 H (0.6-1.0) mg/dL Est Cr Clr Drug Dosing 25.28 Estimated GFR (MDRD) 23.6 ml/min Glucose 101 (74-106) mg/dL Calcium 9.1 (8.5-10.1) mg/dL Total Bilirubin 1.6 H (0.2-1.0) mg/dL AST 33 (15-37) IU/L ALT 18 (14-63) IU/L Alkaline Phosphatase 84 (46-116) U/L Total Protein 6.7 (6.4-8.2) g/dL Albumin 3.0 L (3.4-5.0) g/dL Globulin 3.7 (2.6-4.0) g/dL Albumin/Globulin Ratio 0.8 L (0.9-1.6) Lipase (73-393) U/L Blood Type Antibody Screen Crossmatch Result Diagrams: 06/23/18 06:21 06/23/18 06:21 Tony Results Last 24 hrs: Microbiology 06/23/18 08:45 Stool Occult Blood (TONY) - Final Stool / Feces POSITIVE OCCULT BLOOD Consult PN Assessment/Plan (1) Anemia SNOMED Code(s): 585125064 Code(s): D64.9 - ANEMIA, UNSPECIFIED Current Visit: Yes Problem List Initiated/Reviewed/Updated: Yes My Orders Last 24 Hours: My Active Orders 06/23/18 18:00 Pantoprazole [ProTONIX IV] 40 mg IV Q12H Plan: The patient has signs of a recurrent GI bleed. Given her hematochezia this could be a low-lying: Lesion, diverticulosis, or an AVM. She does complain of severe heartburn that she treats with Zantac. I explained the need for a diagnostic EGD and colonoscopy. We discussed the procedure itself, periprocedural preparation and expected postop course. I discussed the risks which include bleeding infection or damage to surrounding structures including perforation. The patient verbalized understanding and wishes to proceed. She will need to be on a clear liquid diet today and nothing by mouth after 8 AM tomorrow morning. She will be added on as my last case of the day tomorrow so she can have some clear liquids right away in the morning. She will need to do a bowel regimen prior to this. She should take 4 Dulcolax tablets at 10:00. She can drink 119 gm of miralax with 32 oz of fluid/gatorade (not red) at noon and then repeat this at 4:00.
[2018-06-23] MEDS ORDERED: Polyethylene Glycol 3350 Powder 17 GM Packet PO ONE (15:00)
[2018-06-23] MEDS: Pantoprazole 40 MG Vial IV SCH (17:11)
[2018-06-23] MEDS: Polyethylene Glycol 3350 Powder 17 GM Packet PO ONE (23:15)
[2018-06-24] MEDS: Polyethylene Glycol 3350 Powder 17 GM Packet PO ONE (04:42)
[2018-06-24] MEDS: oxyCODONE 5 MG Tab PO PRN (05:49)
[2018-06-24] MEDS: Pantoprazole 40 MG Vial IV SCH ×2 (05:49→18:10)
--- NOTE | 2018-06-24 08:43 | PCM.PN ---
- General Info Date of Service: 06/24/18 Subjective Update: Patient is nothing by mouth awaiting her EGD and colonoscopy. She is complaining of not being able to eat but understands she has to wait until her procedure is done today. Patient does admit to being a little anxious however is present with her who has encouraged her to get the procedures done today. - Patient Data Vitals - Most Recent: Last Vital Signs Temp 36.6 C 06/24/18 08:00 Pulse 76 06/24/18 08:00 Resp 19 06/24/18 08:00 BP 160/86 H 06/24/18 08:00 Pulse Ox 95 06/24/18 08:00 Weight - Most Recent: 60.781 kg I&O - Last 24 Hours: Intake & Output 06/23/18 06/24/18 06/24/18 22:59 06:59 14:59 Intake Total 1640 1700 Output Total 3250 3775 Balance -1610 -2075 Lab Results Last 24 Hours: Laboratory Results - last 24 hr 06/22/18 06/23/18 06/23/18 Range/Units 16:31 16:32 22:00 WBC (4.0-11.0) K/uL RBC (4.30-5.90) M/uL Hgb 11.0 L 11.0 L (12.0-16.0) g/dL Hct 34.2 L 34.6 L (36.0-46.0) % MCV (80.0-98.0) fL MCH (27.0-32.0) pg MCHC (31.0-37.0) g/dL RDW Std Deviation (28.0-62.0) fl RDW Coeff of Yara (11.0-15.0) % Plt Count (150-400) K/uL Neut % (Auto) (48.0-80.0) % Lymph % (Auto) (16.0-40.0) % [place] % (Auto) (0.0-15.0) % Eos % (Auto) (0.0-7.0) % Baso % (Auto) (0.0-1.5) % Neut # (Auto) (1.4-5.7) K/uL Lymph # (Auto) (0.6-2.4) K/uL [place] # (Auto) (0.0-0.8) K/uL Eos # (Auto) (0.0-0.7) K/uL Baso # (Auto) (0.0-0.1) K/uL Nucleated RBC % /100WBC Nucleated RBCs # K/uL Sodium (136-145) mmol/L Potassium (3.5-5.1) mmol/L Chloride (98-107) mmol/L Carbon Dioxide (21.0-32.0) mmol/L BUN (7.0-18.0) mg/dL Creatinine (0.6-1.0) mg/dL Est Cr Clr Drug Dosing mL/min Estimated GFR (MDRD) ml/min Glucose (74-106) mg/dL Calcium (8.5-10.1) mg/dL Total Bilirubin (0.2-1.0) mg/dL AST (15-37) IU/L ALT (14-63) IU/L Alkaline Phosphatase (46-116) U/L Total Protein (6.4-8.2) g/dL Albumin (3.4-5.0) g/dL Globulin (2.6-4.0) g/dL Albumin/Globulin Ratio (0.9-1.6) Blood Type A NEGATIVE Antibody Screen NEGATIVE Crossmatch See Detail 06/24/18 06/24/18 Range/Units 05:25 05:25 WBC 9.85 (4.0-11.0) K/uL RBC 5.22 (4.30-5.90) M/uL Hgb 11.6 L (12.0-16.0) g/dL Hct 36.6 (36.0-46.0) % MCV 70.1 L (80.0-98.0) fL MCH 22.2 L (27.0-32.0) pg MCHC 31.7 (31.0-37.0) g/dL RDW Std Deviation 65.4 H (28.0-62.0) fl RDW Coeff of Yara 26 H (11.0-15.0) % Plt Count 248 (150-400) K/uL Neut % (Auto) 76.5 (48.0-80.0) % Lymph % (Auto) 10.8 L (16.0-40.0) % [place] % (Auto) 11.0 (0.0-15.0) % Eos % (Auto) 1.5 (0.0-7.0) % Baso % (Auto) 0.2 (0.0-1.5) % Neut # (Auto) 7.5 H (1.4-5.7) K/uL Lymph # (Auto) 1.1 (0.6-2.4) K/uL [place] # (Auto) 1.1 H (0.0-0.8) K/uL Eos # (Auto) 0.2 (0.0-0.7) K/uL Baso # (Auto) 0.0 (0.0-0.1) K/uL Nucleated RBC % 0.0 /100WBC Nucleated RBCs # 0 K/uL Sodium 139 (136-145) mmol/L Potassium 3.5 (3.5-5.1) mmol/L Chloride 105 (98-107) mmol/L Carbon Dioxide 19.6 L (21.0-32.0) mmol/L BUN 25 H (7.0-18.0) mg/dL Creatinine 1.9 H (0.6-1.0) mg/dL Est Cr Clr Drug Dosing 27.95 mL/min Estimated GFR (MDRD) 26.4 ml/min Glucose 89 (74-106) mg/dL Calcium 9.5 (8.5-10.1) mg/dL Total Bilirubin 0.7 (0.2-1.0) mg/dL AST 28 (15-37) IU/L ALT 16 (14-63) IU/L Alkaline Phosphatase 91 (46-116) U/L Total Protein 7.0 (6.4-8.2) g/dL Albumin 3.0 L (3.4-5.0) g/dL Globulin 4.0 (2.6-4.0) g/dL Albumin/Globulin Ratio 0.8 L (0.9-1.6) Blood Type Antibody Screen Crossmatch Tony Results Last 24 Hours: Microbiology 06/22/18 18:05 Aerobic Blood Culture - Preliminary Blood - Venous NO GROWTH AFTER 1 DAY Anaerobic Blood Culture - Preliminary NO GROWTH AFTER 1 DAY 06/22/18 18:13 Aerobic Blood Culture - Preliminary Blood - Venous - Lab Draw NO GROWTH AFTER 1 DAY Anaerobic Blood Culture - Preliminary NO GROWTH AFTER 1 DAY 06/23/18 14:26 Influenza Type A Antigen Screen - Final Nasopharyngeal Swab NEGATIVE INFLUENZA A VIRUS AG Influenza Type B Antigen Screen - Final NEGATIVE INFLUENZA B VIRUS AG 06/23/18 08:45 Stool Occult Blood (TONY) - Final Stool / Feces POSITIVE OCCULT BLOOD Med Orders - Current: Current Medications Acetaminophen (Tylenol) 650 mg PO Q4H PRN PRN Reason: Pain (Mild 1-3)/fever Albuterol/Ipratropium (Duoneb 3.0-0.5 Mg/3 Ml) 3 ml NEB Q4HRRT PRN PRN Reason: Shortness Of Breath/wheezing Azithromycin (Zithromax) 250 mg PO Q24H [facility] Last Admin: 06/23/18 12:17 Dose: 250 mg Nicotine (Habitrol) 14 mg TRDERM DAILY [facility] Last Admin: 06/23/18 08:05 Dose: 14 mg Ondansetron HCl (Zofran Odt) 4 mg PO Q4H PRN PRN Reason: nausea, able to take PO Oxycodone HCl (Oxycodone) 5 mg PO Q4H PRN PRN Reason: Pain (moderate 4-6) Last Admin: 06/24/18 05:49 Dose: 5 mg Pantoprazole Sodium (Protonix Iv) 40 mg IV Q12H [facility] Last Admin: 06/24/18 05:49 Dose: 40 mg Sodium Chloride (Saline Flush) 10 ml FLUSH ASDIRECTED PRN PRN Reason: Keep Vein Open Sodium Chloride (Saline Flush) 2.5 ml FLUSH ASDIRECTED PRN PRN Reason: Keep Vein Open Discontinued Medications Acetaminophen (Tylenol) 650 mg PO NOW ONE Stop: 06/22/18 17:47 Last Admin: 06/23/18 00:08 Dose: 650 mg Bisacodyl (Dulcolax) 20 mg PO ONETIME ONE Stop: 06/23/18 12:01 Last Admin: 06/23/18 12:17 Dose: 20 mg Diphenhydramine HCl (Benadryl) 50 mg IVPUSH ONETIME ONE Stop: 06/22/18 22:01 Last Admin: 06/23/18 00:10 Dose: 50 mg Furosemide (Lasix) 20 mg IVPUSH ONETIME ONE Stop: 06/22/18 22:01 Last Admin: 06/23/18 00:09 Dose: 20 mg Furosemide (Lasix) 20 mg IVPUSH ONETIME ONE Stop: 06/23/18 02:01 Last Admin: 06/23/18 05:50 Dose: 20 mg Furosemide (Lasix) Confirm Administered Dose 20 mg .ROUTE .STK-MED ONE Stop: 06/23/18 05:40 Last Admin: 06/23/18 06:42 Dose: Not Given Sodium Chloride (Normal Saline) 1,000 mls @ 999 mls/hr IV .Bolus ONE Stop: 06/22/18 17:24 Last Admin: 06/22/18 16:44 Dose: 999 mls/hr Sodium Chloride (Normal Saline) Confirm Administered Dose 20 mls @ as directed .ROUTE .K-MED ONE Stop: 06/22/18 16:43 Last Admin: 06/22/18 16:48 Dose: 20 mls/hr Ceftriaxone Sodium/Dextrose 1 (gm/ Premix) 50 mls @ 100 mls/hr IV ONETIME ONE Stop: 06/22/18 17:55 Last Admin: 06/22/18 17:34 Dose: 100 mls/hr Pantoprazole Sodium 80 mg/ (Sodium Chloride) 100 mls @ 10 mls/hr IV Q12H [facility] Last Admin: 06/23/18 05:50 Dose: 10 mls/hr Ceftriaxone Sodium/Dextrose 1 (gm/ Premix) 50 mls @ 100 mls/hr IV Q24H [facility] Ceftriaxone Sodium 1 gm/ (Sodium Chloride) 50 mls @ 100 mls/hr IV Q24H [facility] Last Admin: 06/23/18 08:06 Dose: 100 mls/hr Pantoprazole Sodium (Protonix Iv) 80 mg IVPUSH .BOLUS ONE Stop: 06/22/18 16:25 Last Admin: 06/22/18 16:47 Dose: 80 mg Polyethylene Glycol (Miralax) 238 gm PO ONETIME ONE Stop: 06/23/18 15:01 Last Admin: 06/23/18 14:14 Dose: 238 gm Polyethylene Glycol (Miralax) 238 gm PO ONETIME ONE Stop: 06/23/18 19:01 Last Admin: 06/24/18 04:42 Dose: Not Given Sodium Chloride (Normal Saline) 20 ml IV STAT [facility] Sodium Chloride (Saline Flush) 10 ml FLUSH ASDIRECTED PRN PRN Reason: Keep Vein Open Sodium Chloride (Saline Flush) 2.5 ml FLUSH ASDIRECTED PRN PRN Reason: Keep Vein Open - Exam Quality Assessment: Supplemental Oxygen General: Alert, Oriented, Cooperative Lungs: Clear to Auscultation, Normal Respiratory Effort Cardiovascular: Regular Rate, Regular Rhythm GI/Abdominal Exam: Normal Bowel Sounds, Non-Tender Extremities: Normal Inspection, Non-Tender, No Pedal Edema - Problem List Review Problem List Initiated/Reviewed/Updated: Yes - My Orders Last 24 Hours: My Active Orders 06/23/18 10:45 Azithromycin [Zithromax] 250 mg PO Q24H 06/23/18 Lunch Clear Liquid Diet [DIET] 06/24/18 Breakfast NPO After Midnight [Nothing per Oral After Midnight Diet] [DIET] - Plan Plan:: This is a 67-year-old female presenting with acute GI bleed resulting in significant anemia currently the anemia has stabilized at the patient has received a total of 10 units of RBC. Patient is to be evaluated with EGD and scope for possible etiology of her acute GI bleed. Patient also has a history of COPD for which currently she is on O2 supplementation. Problems: #1. Severe anemia likely etiology is lower GI in nature -Patient's hemoglobin has risen to greater than 11; patient is received a total of 5 units of RBC. -Patient currently nothing by mouth awaiting her EGD and colonoscopy for possible etiology of her GI bleed -Shall await the results of the evaluation and proceed per recommendations. #2. COPD with likely pneumonia based on imaging -Patient to be continued to be followed for her COPD, patient currently on azithromycin 250 mg by mouth dose as well as ceftriaxone 1 g every 24 hours -Nasal swab for influenza was negative -Patient on O2 shall continue to follow and treat as needed.
[2018-06-24] MEDS: Nicotine 14 MG/24 Hr Patch TRDERM SCH (09:35)
[2018-06-24] MEDS: Azithromycin 250 MG Tab PO SCH (10:40)
[2018-06-24] MEDS ORDERED: cefTRIAXone 1 GM Vial IM SCH (11:30)
--- NOTE | 2018-06-24 11:46 | PCM.PREANE ---
Preanesthetic Assessment - Anesthesia/Transfusion/Family Hx Anesthesia History: Prior Anesthesia Without Reaction Family History of Anesthesia Reaction: No Transfusion History: Prior Transfusion Without Reaction - Review of Systems General: Weakness, Malaise Pulmonary: Shortness of Breath Gastrointestinal: No Symptoms Neurological: No Symptoms - Physical Assessment NPO Status Date: 06/23/18 O2 Sat by Pulse Oximetry: 95 Respiratory Rate: 18 Temperature: 98.4 F Vital Signs: Last Vital Signs Temp 97.9 F 06/24/18 11:25 Pulse 73 06/24/18 11:25 Resp 18 06/24/18 11:25 BP 160/89 H 06/24/18 11:25 Pulse Ox 95 06/24/18 11:25 Height: 5 ft 7 in Weight: 60.781 kg ASA Class: 3 Mental Status: Alert & Oriented x3 Airway Class: Mallampati = 2 ROM/Head Extension: Full Lungs: Clear to Auscultation, Normal Respiratory Effort Cardiovascular: Regular Rate, Regular Rhythm - Lab Values: Laboratory Last Values WBC 9.85 K/uL (4.0-11.0) 06/24/18 05:25 RBC 5.22 M/uL (4.30-5.90) 06/24/18 05:25 Hgb 11.6 g/dL (12.0-16.0) L 06/24/18 05:25 Hct 36.6 % (36.0-46.0) 06/24/18 05:25 MCV 70.1 fL (80.0-98.0) L 06/24/18 05:25 MCH 22.2 pg (27.0-32.0) L 06/24/18 05:25 MCHC 31.7 g/dL (31.0-37.0) 06/24/18 05:25 RDW Std Deviation 65.4 fl (28.0-62.0) H 06/24/18 05:25 RDW Coeff of Yara 26 % (11.0-15.0) H 06/24/18 05:25 Plt Count 248 K/uL (150-400) 06/24/18 05:25 MPV 9.20 fL (7.40-12.00) 06/22/18 16:31 Neut % (Auto) 76.5 % (48.0-80.0) 06/24/18 05:25 Lymph % (Auto) 10.8 % (16.0-40.0) L 06/24/18 05:25 [place] % (Auto) 11.0 % (0.0-15.0) 06/24/18 05:25 Eos % (Auto) 1.5 % (0.0-7.0) 06/24/18 05:25 Baso % (Auto) 0.2 % (0.0-1.5) 06/24/18 05:25 Neut # (Auto) 7.5 K/uL (1.4-5.7) H 06/24/18 05:25 Lymph # (Auto) 1.1 K/uL (0.6-2.4) 06/24/18 05:25 [place] # (Auto) 1.1 K/uL (0.0-0.8) H 06/24/18 05:25 Eos # (Auto) 0.2 K/uL (0.0-0.7) 06/24/18 05:25 Baso # (Auto) 0.0 K/uL (0.0-0.1) 06/24/18 05:25 Add Manual Diff YES 06/23/18 06:21 Neutrophils % (Manual) 70 % (48.0-80.0) 06/23/18 06:21 Band Neutrophils % 15 % 06/23/18 06:21 Lymphocytes % (Manual) 10 % (16.0-40.0) L 06/23/18 06:21 Monocytes % (Manual) 4 % (0.0-15.0) 06/23/18 06:21 Eosinophils % (Manual) 1 % (0.0-7.0) 06/23/18 06:21 Nucleated RBC % 0.0 /100WBC 06/24/18 05:25 Absolute Seg Neuts 8.1 (1.4-5.7) H 06/23/18 06:21 Band Neutrophils # 1.7 06/23/18 06:21 Lymphocytes # (Manual) 1.2 (0.6-2.4) 06/23/18 06:21 Monocytes # (Manual) 0.5 (0.0-0.8) 06/23/18 06:21 Eosinophils # (Manual) 0.1 (0.0-0.7) 06/23/18 06:21 Nucleated RBCs # 0 K/uL 06/24/18 05:25 INR 1.12 06/22/18 16:31 APTT 31.8 SEC (18.6-31.3) H 06/22/18 16:31 Lactate 1.7 mmol/L (0.20-2.00) 06/22/18 17:23 Sodium 139 mmol/L (136-145) 06/24/18 05:25 Potassium 3.5 mmol/L (3.5-5.1) 06/24/18 05:25 Chloride 105 mmol/L (98-107) 06/24/18 05:25 Carbon Dioxide 19.6 mmol/L (21.0-32.0) L 06/24/18 05:25 BUN 25 mg/dL (7.0-18.0) H 06/24/18 05:25 Creatinine 1.9 mg/dL (0.6-1.0) H 06/24/18 05:25 Est Cr Clr Drug Dosing 27.95 mL/min 06/24/18 05:25 Estimated GFR (MDRD) 26.4 ml/min 06/24/18 05:25 Glucose 89 mg/dL (74-106) 06/24/18 05:25 Calcium 9.5 mg/dL (8.5-10.1) 06/24/18 05:25 Total Bilirubin 0.7 mg/dL (0.2-1.0) 06/24/18 05:25 AST 28 IU/L (15-37) 06/24/18 05:25 ALT 16 IU/L (14-63) 06/24/18 05:25 Alkaline Phosphatase 91 U/L (46-116) 06/24/18 05:25 Total Protein 7.0 g/dL (6.4-8.2) 06/24/18 05:25 Albumin 3.0 g/dL (3.4-5.0) L 06/24/18 05:25 Globulin 4.0 g/dL (2.6-4.0) 06/24/18 05:25 Albumin/Globulin Ratio 0.8 (0.9-1.6) L 06/24/18 05:25 Lipase 207 U/L (73-393) 06/22/18 16:31 Blood Type A NEGATIVE 06/22/18 16:31 Antibody Screen NEGATIVE 06/22/18 16:31 Crossmatch See Detail 06/22/18 16:31 - Allergies Allergies/Adverse Reactions: Allergies Allergy/AdvReac Type Severity Reaction Status Date / Time adhesive tape Allergy Itching Verified 06/22/18 20:43 Latex, Natural Rubber Allergy Itching Verified 06/22/18 20:43 - Blood Blood Available: No - Anesthesia Plan Pre-Op Medication Ordered: None - Acknowledgements Anesthesia Type Planned: General Anesthesia Pt an Appropriate Candidate for the Planned Anesthesia: Yes Alternatives and Risks of Anesthesia Discussed w Pt/Guardian: Yes Pt/Guardian Understands and Agrees with Anesthesia Plan: Yes Additional Comments: PMH: recent GI bleed, Hb 4 tp 11 post transfusion, COPD not requiring home O2 but limiting activity, 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 PLAN: mac/tiva PreAnesthesia Questionnaire HEENT History: Reports: None Cardiovascular History: Reports: None Respiratory History: Reports: COPD Gastrointestinal History: Reports: GI Bleed, Other (See Below) Other Gastrointestinal History: rectal bleeding Genitourinary History: Reports: None Musculoskeletal History: Reports: None Neurological History: Reports: None Psychiatric History: Reports: None Endocrine/Metabolic History: Reports: Hypothyroidism Hematologic History: Reports: Anemia, Blood Transfusion(s) Immunologic History: Reports: None Oncologic (Cancer) History: Reports: None Dermatologic History: Reports: None - Infectious Disease History Infectious Disease History: Reports: Chicken Pox, Measles, Mumps - Past Surgical History Head Surgeries/Procedures: Reports: None - SUBSTANCE USE Smoking Status *Q: Current Every Day Smoker Tobacco Use Within Last Twelve Months: Cigarettes Recreational Drug Use History: No - HOME MEDS Home Medications: Home Meds . [No Known Home Meds] 06/22/18 [History] - CURRENT (IN HOUSE) MEDS Current Meds: Current Medications Acetaminophen (Tylenol) 650 mg PO Q4H PRN PRN Reason: Pain (Mild 1-3)/fever Albuterol/Ipratropium (Duoneb 3.0-0.5 Mg/3 Ml) 3 ml NEB Q4HRRT PRN PRN Reason: Shortness Of Breath/wheezing Azithromycin (Zithromax) 250 mg PO Q24H [facility] Last Admin: 06/24/18 10:40 Dose: Not Given Ceftriaxone Sodium 1 gm/ (Sodium Chloride) 50 mls @ 100 mls/hr IV Q24H [facility] Nicotine (Habitrol) 14 mg TRDERM DAILY [facility] Last Admin: 06/24/18 09:35 Dose: 14 mg Ondansetron HCl (Zofran Odt) 4 mg PO Q4H PRN PRN Reason: nausea, able to take PO Oxycodone HCl (Oxycodone) 5 mg PO Q4H PRN PRN Reason: Pain (moderate 4-6) Last Admin: 06/24/18 05:49 Dose: 5 mg Pantoprazole Sodium (Protonix Iv) 40 mg IV Q12H [facility] Last Admin: 06/24/18 05:49 Dose: 40 mg Sodium Chloride (Saline Flush) 10 ml FLUSH ASDIRECTED PRN PRN Reason: Keep Vein Open Sodium Chloride (Saline Flush) 2.5 ml FLUSH ASDIRECTED PRN PRN Reason: Keep Vein Open Discontinued Medications Acetaminophen (Tylenol) 650 mg PO NOW ONE Stop: 06/22/18 17:47 Last Admin: 06/23/18 00:08 Dose: 650 mg Bisacodyl (Dulcolax) 20 mg PO ONETIME ONE Stop: 06/23/18 12:01 Last Admin: 06/23/18 12:17 Dose: 20 mg Ceftriaxone Sodium (Rocephin) 1 gm IM Q24H [facility] Diphenhydramine HCl (Benadryl) 50 mg IVPUSH ONETIME ONE Stop: 06/22/18 22:01 Last Admin: 06/23/18 00:10 Dose: 50 mg Furosemide (Lasix) 20 mg IVPUSH ONETIME ONE Stop: 06/22/18 22:01 Last Admin: 06/23/18 00:09 Dose: 20 mg Furosemide (Lasix) 20 mg IVPUSH ONETIME ONE Stop: 06/23/18 02:01 Last Admin: 06/23/18 05:50 Dose: 20 mg Furosemide (Lasix) Confirm Administered Dose 20 mg .ROUTE .STK-MED ONE Stop: 06/23/18 05:40 Last Admin: 06/23/18 06:42 Dose: Not Given Sodium Chloride (Normal Saline) 1,000 mls @ 999 mls/hr IV .Bolus ONE Stop: 06/22/18 17:24 Last Admin: 06/22/18 16:44 Dose: 999 mls/hr Sodium Chloride (Normal Saline) Confirm Administered Dose 20 mls @ as directed .ROUTE .STK-MED ONE Stop: 06/22/18 16:43 Last Admin: 06/22/18 16:48 Dose: 20 mls/hr Ceftriaxone Sodium/Dextrose 1 (gm/ Premix) 50 mls @ 100 mls/hr IV ONETIME ONE Stop: 06/22/18 17:55 Last Admin: 06/22/18 17:34 Dose: 100 mls/hr Pantoprazole Sodium 80 mg/ (Sodium Chloride) 100 mls @ 10 mls/hr IV Q12H [facility] Last Admin: 06/23/18 05:50 Dose: 10 mls/hr Ceftriaxone Sodium/Dextrose 1 (gm/ Premix) 50 mls @ 100 mls/hr IV Q24H [facility] Ceftriaxone Sodium 1 gm/ (Sodium Chloride) 50 mls @ 100 mls/hr IV Q24H [facility] Last Admin: 06/23/18 08:06 Dose: 100 mls/hr Pantoprazole Sodium (Protonix Iv) 80 mg IVPUSH .BOLUS ONE Stop: 06/22/18 16:25 Last Admin: 06/22/18 16:47 Dose: 80 mg Polyethylene Glycol (Miralax) 238 gm PO ONETIME ONE Stop: 06/23/18 15:01 Last Admin: 06/23/18 14:14 Dose: 238 gm Polyethylene Glycol (Miralax) 238 gm PO ONETIME ONE Stop: 06/23/18 19:01 Last Admin: 06/24/18 04:42 Dose: Not Given Sodium Chloride (Normal Saline) 20 ml IV STAT [facility] Sodium Chloride (Saline Flush) 10 ml FLUSH ASDIRECTED PRN PRN Reason: Keep Vein Open Sodium Chloride (Saline Flush) 2.5 ml FLUSH ASDIRECTED PRN PRN Reason: Keep Vein Open
[2018-06-24] MEDS: cefTRIAXone 1 GM in Sodium Chloride 0.9% 50 ML IV SCH (12:57)
[2018-06-24] MEDS ORDERED: Propofol 200 MG/20 ML SDV ONE (13:23)
[2018-06-24] MEDS ORDERED: fentaNYL 100 MCG/2 ML SDV ONE (13:23)
[2018-06-24] MEDS ORDERED: Midazolam 1 MG/ML 2 ML SDV ONE (13:23)
--- NOTE | 2018-06-24 14:35 | PCM.OPNOTE ---
- General Post-Op/Procedure Note Date of Surgery/Procedure: 06/24/18 Operative Procedure(s): Diagnostic EGD and Colonoscopy Findings: A. Duodenal polyp x1, Gastric biopsies and severe esophagitis. B. Cecal AVM x1, rectal polyps x2. Pre Op Diagnosis: GI bleed Post-Op Diagnosis: duodenal polyp x1, severe esophagitis, cecal AVM x1 and rectal polyps x2. Anesthesia Technique: MAC EBL in mLs: 0 Complications: None Condition: Good Free Text/Narrative:: Intake & Output 06/23/18 06/24/18 06/24/18 22:59 06:59 14:59 Intake Total 1640 1700 50 Output Total 3250 4975 Balance -0502 -5117 50
--- NOTE | 2018-06-24 14:57 | PCM.POSTAN ---
POST ANESTHESIA ASSESSMENT - MENTAL STATUS Mental Status: Alert, Oriented - RESPIRATORY Respiratory Status: Respiratory Rate WNL, Airway Patent, O2 Saturation Stable - CARDIOVASCULAR CV Status: Pulse Rate WNL, Blood Pressure Stable - GASTROINTESTINAL GI Status: No Symptoms - POST OP HYDRATION Hydration Status: Adequate & Stable (ok for transfer to floor on 2 liters of O2 per nasal cannulae if sats remain over 90 %)
--- NOTE | 2018-06-24 15:13 | PCM.SN ---
- Free Text/Narrative Note: Patient is a 67 year old female who presented with a GI bleed. I performed a diagnostic EGD and colonoscopy. She had what appeared to be hyperplastic polyps in the first portion of her duodenum. One of these was biopsied. The stomach appeared normal but biopsies were performed there as well. She appeared to have severe inflammation just above the GE junction consitent with GERD and esophagitis. A biopsy was taken. Colonoscopically, she had two rectal polyps. In the cecum there was a small lesion that appeared to be an AVM. The patients prep was fiar to poor and I had to perform a large amount of irrigation to safely pass my scope through. There was no stigmata of bleeding and no clot on the AVM however this may have been washed away. A photo of this was taken. The patient can eat and drink. I would start her on Protonix 40mg qac. I talked to her but will see her in the morning. If she is stable in the am I would be ok with discharging her at that time, but would like her monitored overnight. Please call with questions.
[2018-06-25] MEDS: oxyCODONE 5 MG Tab PO PRN (05:38)
[2018-06-25] MEDS: Pantoprazole 40 MG Vial IV SCH (05:40)
[2018-06-25] MEDS: Nicotine 14 MG/24 Hr Patch TRDERM SCH (10:18)
[2018-06-25] MEDS: Azithromycin 250 MG Tab PO SCH (10:21)
[2018-06-25] MEDS: cefTRIAXone 1 GM in Sodium Chloride 0.9% 50 ML IV SCH (11:33)
--- NOTE | 2018-06-25 11:35 | PCM.DCSUM1 ---
Discharge Summary - Hospital Course HPI Initial Comments: Discharge Summary Date of admission: 06/22/18 Date of discharge: 06/25/18 Admitting diagnosis: #1. Severe acute anemia in the setting of acute GI bleed with a microcytic iron deficiency anemia on laboratory evaluation #2. Underlying COPD with possible pneumonia exacerbation #3. Hypothyroidism history noncompliant with medications Discharge diagnoses: #1. Acute anemia now resolved, patient status post EGD and colonoscopy as well as with a total of 5 units of pRBC; no further bleeding #2. COPD with pneumonia exacerbation now resolving discharged home on oral antibiotics #3. Hypothyroidism #4. #5. Consultations: Gen. surgery-Dr. Mercer Procedures: EGD colonoscopy Hospitalization course: patient was admitted on 06/22/18 secondary to severe acute anemia and acute GI bleed. Patient was over the course of 24 hours given a total of 4 units of RBC which brought her hemoglobin from 4 to just above 9. General surgery assess the patient in the a.m. and decided that the patient would benefit from an EGD colonoscopy for further assessment of her GI bleeding issues. Patient was given another unit of blood on day 2 of admission her hemoglobin then stabilized at 11.4. On 06/24/18 patient received a colonoscopy and EGD which showed acid reflux changes of the esophagus, no ulcerations in the stomach lining however biopsies were taken and to hyper plastic polyps in the duodenum as well for a colonoscopy standpoint it was an area of AV malformation as well as 2 polyps biopsied in the rectum. Patient tolerated the procedure well and was stable from general surgery standpoint her diet was then progressed was started on IV Protonix and 06/25/18 was stable enough to be discharged home. Patient does have a history of hypothyroidism for which she has not taken her hypothyroid medications for at least a year. Patient's TSH was greater than 39 end free T4 was low at 0.64. Patient was subsequently discharged home with instructions to follow-up with Dr. Mercer in 2 weeks for biopsy results as well as strict instructions to establish care with a primary care provider in [facility] where the patient lives. Patient was sent home on 3 days of azithromycin 250 by mouth, Protonix 40 mg by mouth daily, oral iron tablets, Advair inhaler, albuterol inhaler, and was restarted on levothyroxine 25 mcg daily with instructions to follow-up with her primary care for titration of dose. Diagnosis: Stroke: No Modified Yuliya Scale: No Symptoms at All Modified Yuliya Scale Score: 0 - Discharge Data Discharge Date: 06/25/18 Discharge Disposition: Home, Self-Care 01 Condition: Good - Patient Summary/Data Operative Procedure(s) Performed: Diagnostic EGD and Colonoscopy Consults: Consultations 06/22/18 17:32 Consult to Physician [CONS] Routine - Patient Instructions Diet: Usual Diet as Tolerated Activity: As Tolerated Driving: Do Not Drive Showering/Bathing: May Shower Wound/Incision Care: Keep Operative Site/Wound Site Clean and Dry Notify Provider of: Fever, Increased Pain, Swelling and Redness, Drainage, Nausea and/or Vomiting Other/Special Instructions: Aracelis needs to make sure to get a follow up appt with your PCP in [place] right away. You need to restart your thryoid medications. I have started you on a low dose daily thryoid medication but this will need to be monitered by your PCP in [place]. - Discharge Plan *PRESCRIPTION DRUG MONITORING PROGRAM REVIEWED*: No *COPY OF PRESCRIPTION DRUG MONITORING REPORT IN PATIENT SUHAS: No Prescriptions/Med Rec: Albuterol Sulfate [Proventil Hfa] 6.7 gm IH Q6H PRN 30 Days #1 hfa.[email or web address] PRN Reason: Wheezing Azithromycin [Zithromax] 250 mg PO Q24H 3 Days #3 tablet Fluticasone/Salmeterol [Advair 500-50] 2 puff INH BID 30 Days #1 diskus Iron,Carbonyl/Vit C/Vit B12/Fa [Iron 100 Plus Tablet] 1 each PO DAILY 30 Days # 30 tablet Levothyroxine Sodium [Synthroid] 25 mcg PO DAILY 30 Days #30 tablet Pantoprazole [ProTONIX] 40 mg PO BID 30 Days #60 tab.cr Home Medications: Home Meds Albuterol Sulfate [Proventil Hfa] 6.7 gm IH Q6H PRN 30 Days #1 hfa.[email or web address] [Rx] Azithromycin [Zithromax] 250 mg PO Q24H 3 Days #3 tablet 06/25/18 [Rx] Fluticasone/Salmeterol [Advair 500-50] 2 puff INH BID 30 Days #1 diskus [Rx] Iron,Carbonyl/Vit C/Vit B12/Fa [Iron 100 Plus Tablet] 1 each PO DAILY 30 Days # 30 tablet 06/25/18 [Rx] Levothyroxine Sodium [Synthroid] 25 mcg PO DAILY 30 Days #30 tablet 06/25/18 [Rx ] Pantoprazole [ProTONIX] 40 mg PO BID 30 Days #60 tab.cr 06/25/18 [Rx] Oxygen Therapy Mode: Room Air Referrals: Keya Baeza MD [Physician] - (Follow-up in 2 weeks) PCP,Not In Area [Primary Care Provider] - - Discharge Summary/Plan Comment DC Time >30 min.: No - Patient Data Vitals - Most Recent: Last Vital Signs Temp 36.8 C 06/25/18 08:07 Pulse 78 06/25/18 08:07 Resp 18 06/25/18 08:07 BP 175/82 H 06/25/18 08:07 Pulse Ox 93 L 06/25/18 08:07 Weight - Most Recent: 60.781 kg I&O - Last 24 hours: Intake & Output 06/24/18 06/25/18 06/25/18 22:59 06:59 14:59 Intake Total 120 690 Output Total 300 200 Balance -180 490 Lab Results - Last 24 hrs: Laboratory Results - last 24 hr 06/25/18 06/25/18 06/25/18 Range/Units 05:00 05:00 05:00 WBC 8.80 (4.0-11.0) K/uL RBC 5.20 (4.30-5.90) M/uL Hgb 11.4 L (12.0-16.0) g/dL Hct 36.6 (36.0-46.0) % MCV 70.4 L (80.0-98.0) fL MCH 21.9 L (27.0-32.0) pg MCHC 31.1 (31.0-37.0) g/dL RDW Std Deviation 68.8 H (28.0-62.0) fl RDW Coeff of Yara 27 H (11.0-15.0) % Plt Count 240 (150-400) K/uL Neut % (Auto) 73.8 (48.0-80.0) % Lymph % (Auto) 12.3 L (16.0-40.0) % [place] % (Auto) 11.1 (0.0-15.0) % Eos % (Auto) 2.5 (0.0-7.0) % Baso % (Auto) 0.3 (0.0-1.5) % Neut # (Auto) 6.5 H (1.4-5.7) K/uL Lymph # (Auto) 1.1 (0.6-2.4) K/uL [place] # (Auto) 1.0 H (0.0-0.8) K/uL Eos # (Auto) 0.2 (0.0-0.7) K/uL Baso # (Auto) 0.0 (0.0-0.1) K/uL Nucleated RBC % 0.4 /100WBC Nucleated RBCs # 0 K/uL Sodium 139 (136-145) mmol/L Potassium 3.6 (3.5-5.1) mmol/L Chloride 107 (98-107) mmol/L Carbon Dioxide 18.8 L (21.0-32.0) mmol/L BUN 18 (7.0-18.0) mg/dL Creatinine 1.5 H (0.6-1.0) mg/dL Est Cr Clr Drug Dosing 35.40 mL/min Estimated GFR (MDRD) 34.7 ml/min Glucose 92 (74-106) mg/dL Calcium 9.2 (8.5-10.1) mg/dL Total Bilirubin 0.4 (0.2-1.0) mg/dL AST 24 (15-37) IU/L ALT 17 (14-63) IU/L Alkaline Phosphatase 86 (46-116) U/L Total Protein 6.6 (6.4-8.2) g/dL Albumin 2.7 L (3.4-5.0) g/dL Globulin 3.9 (2.6-4.0) g/dL Albumin/Globulin Ratio 0.7 L (0.9-1.6) Free T4 0.64 L (0.76-1.46) ng/dL TSH 3rd Generation 39.33 H (0.36-3.74) uIU/mL ALEXANDER Results - Last 24 hrs: Microbiology 06/22/18 18:05 Aerobic Blood Culture - Preliminary Blood - Venous NO GROWTH AFTER 2 DAYS Anaerobic Blood Culture - Preliminary NO GROWTH AFTER 2 DAYS 06/22/18 18:13 Aerobic Blood Culture - Preliminary Blood - Venous - Lab Draw NO GROWTH AFTER 2 DAYS Anaerobic Blood Culture - Preliminary NO GROWTH AFTER 2 DAYS Med Orders - Current: Current Medications Acetaminophen (Tylenol) 650 mg PO Q4H PRN PRN Reason: Pain (Mild 1-3)/fever Albuterol/Ipratropium (Duoneb 3.0-0.5 Mg/3 Ml) 3 ml NEB Q4HRRT PRN PRN Reason: Shortness Of Breath/wheezing Azithromycin (Zithromax) 250 mg PO Q24H [facility] Last Admin: 06/25/18 10:21 Dose: 250 mg Ceftriaxone Sodium 1 gm/ (Sodium Chloride) 50 mls @ 100 mls/hr IV Q24H [facility] Last Admin: 06/24/18 12:57 Dose: 100 mls/hr Nicotine (Habitrol) 14 mg TRDERM DAILY [facility] Last Admin: 06/25/18 10:18 Dose: 14 mg Ondansetron HCl (Zofran Odt) 4 mg PO Q4H PRN PRN Reason: nausea, able to take PO Oxycodone HCl (Oxycodone) 5 mg PO Q4H PRN PRN Reason: Pain (moderate 4-6) Last Admin: 06/25/18 05:38 Dose: 5 mg Pantoprazole Sodium (Protonix Iv) 40 mg IV Q12H [facility] Last Admin: 06/25/18 05:40 Dose: 40 mg Sodium Chloride (Saline Flush) 10 ml FLUSH ASDIRECTED PRN PRN Reason: Keep Vein Open Sodium Chloride (Saline Flush) 2.5 ml FLUSH ASDIRECTED PRN PRN Reason: Keep Vein Open Discontinued Medications Acetaminophen (Tylenol) 650 mg PO NOW ONE Stop: 06/22/18 17:47 Last Admin: 06/23/18 00:08 Dose: 650 mg Bisacodyl (Dulcolax) 20 mg PO ONETIME ONE Stop: 06/23/18 12:01 Last Admin: 06/23/18 12:17 Dose: 20 mg Ceftriaxone Sodium (Rocephin) 1 gm IM Q24H [facility] Last Admin: 06/24/18 14:14 Dose: Not Given Diphenhydramine HCl (Benadryl) 50 mg IVPUSH ONETIME ONE Stop: 06/22/18 22:01 Last Admin: 06/23/18 00:10 Dose: 50 mg Fentanyl (Sublimaze) Confirm Administered Dose 100 mcg .ROUTE .STK-MED ONE Stop: 06/24/18 13:24 Furosemide (Lasix) 20 mg IVPUSH ONETIME ONE Stop: 06/22/18 22:01 Last Admin: 06/23/18 00:09 Dose: 20 mg Furosemide (Lasix) 20 mg IVPUSH ONETIME ONE Stop: 06/23/18 02:01 Last Admin: 06/23/18 05:50 Dose: 20 mg Furosemide (Lasix) Confirm Administered Dose 20 mg .ROUTE .STK-MED ONE Stop: 06/23/18 05:40 Last Admin: 06/23/18 06:42 Dose: Not Given Sodium Chloride (Normal Saline) 1,000 mls @ 999 mls/hr IV .Bolus ONE Stop: 06/22/18 17:24 Last Admin: 06/22/18 16:44 Dose: 999 mls/hr Sodium Chloride (Normal Saline) Confirm Administered Dose 20 mls @ as directed .ROUTE .STK-MED ONE Stop: 06/22/18 16:43 Last Admin: 06/22/18 16:48 Dose: 20 mls/hr Ceftriaxone Sodium/Dextrose 1 (gm/ Premix) 50 mls @ 100 mls/hr IV ONETIME ONE Stop: 06/22/18 17:55 Last Admin: 06/22/18 17:34 Dose: 100 mls/hr Pantoprazole Sodium 80 mg/ (Sodium Chloride) 100 mls @ 10 mls/hr IV Q12H [facility] Last Admin: 06/23/18 05:50 Dose: 10 mls/hr Ceftriaxone Sodium/Dextrose 1 (gm/ Premix) 50 mls @ 100 mls/hr IV Q24H [facility] Ceftriaxone Sodium 1 gm/ (Sodium Chloride) 50 mls @ 100 mls/hr IV Q24H [facility] Last Admin: 06/23/18 08:06 Dose: 100 mls/hr Lidocaine HCl (Xylocaine-Mpf 1%) Confirm Administered Dose 5 mls @ as directed .ROUTE .STK-MED ONE Stop: 06/24/18 13:23 Midazolam HCl (Versed 1 Mg/Ml) Confirm Administered Dose 2 mg .ROUTE .STK-MED ONE Stop: 06/24/18 13:24 Pantoprazole Sodium (Protonix Iv) 80 mg IVPUSH .BOLUS ONE Stop: 06/22/18 16:25 Last Admin: 06/22/18 16:47 Dose: 80 mg Polyethylene Glycol (Miralax) 238 gm PO ONETIME ONE Stop: 06/23/18 15:01 Last Admin: 06/23/18 14:14 Dose: 238 gm Polyethylene Glycol (Miralax) 238 gm PO ONETIME ONE Stop: 06/23/18 19:01 Last Admin: 06/24/18 04:42 Dose: Not Given Propofol (Diprivan 20 Ml) Confirm Administered Dose 400 mg .ROUTE .STK-MED ONE Stop: 06/24/18 13:24 Sodium Chloride (Normal Saline) 20 ml IV STAT [facility] Sodium Chloride (Saline Flush) 10 ml FLUSH ASDIRECTED PRN PRN Reason: Keep Vein Open Sodium Chloride (Saline Flush) 2.5 ml FLUSH ASDIRECTED PRN PRN Reason: Keep Vein Open *Q Meaningful Use (DIS) - VTE *Q VTE Mechanical Contraindications *Q: At Risk for Falls VTE Pharmacological Contraindications *Q: Risk of Bleeding
--- NOTE | 2018-06-25 11:36 | OR ---
SURGEON: KEYA BAEZA MD DATE OF PROCEDURE: 06/22/2018 PREOPERATIVE DIAGNOSIS: Gastrointestinal bleed. POSTOPERATIVE DIAGNOSES: 1. Duodenal polyp. 2. Severe esophagitis, secondary to reflux. 3. Cecal arteriovenous malformation. 4. Rectal polyp x2. PROCEDURES PERFORMED: Diagnostic esophagogastroduodenoscopy and colonoscopy. ENDOSCOPIST: Keya Baeza MD. ANESTHESIA: MAC. INSTRUMENT USED: Olympus endoscope and colonoscope. EXTENT OF THE EXAM: To the second portion of duodenum, to the cecum. PREPARATION: Fair to poor. LIMITATIONS: None. INDICATION FOR EXAMINATION: The patient is a 67-year-old female who presented to the emergency room with a GI bleed. Her hemoglobin was 4. She was admitted to the hospitalist team and given 4 units of blood. She is resuscitated well and is now stable. She has had no further bleeding episodes. She had a colonoscopy and EGD 1 to 2 years ago, that she claims showed no evidence of a bleeding source. Given this new GI bleed, I explained to her the need for a repeat endoscopic examination. The patient and I discussed the procedures; expected perioperative course; and risks including bleeding, infection, or damage to the surrounding structures, including perforation. The patient verbalized understanding and wishes to proceed. PROCEDURE IN DETAIL: The patient was brought into the endoscopy suite and placed in a beach chair position. A time-out was completed verifying the patient's name, age, date of , allergies, and procedure to be performed. A bite-block was placed in the patient's mouth. Monitored anesthesia care was induced, and continuous oxygen was provided via nasal cannula throughout the procedure. After adequate sedation was achieved, a well-lubricated endoscope was placed in the patient's mouth and advanced under direct visualization to the second portion of duodenum. This appeared normal, and a photograph was taken. The scope was then straightened out and fully withdrawn, while examining the color, texture, anatomy, and integrity of the mucosa of the upper GI tract. The patient was found to have small hyperplastic-appearing polyps throughout the first portion of the duodenum. A biopsy of this was taken using a cold biopsy forceps. The scope was then brought into the stomach. A photograph was taken of the pylorus, as well as the GE junction. Both appeared normal. The gastric mucosa appeared free of gross inflammation or ulceration. Biopsies were taken of the gastric antrum, body, and fundus and sent for histologic review and H. pylori testing. The scope was then brought into the distal esophagus. The patient was noted to have severe esophagitis, and a photograph of this was taken. A biopsy of the inflamed tissue approximately 1 cm above the GE junction was taken. This was sent to Pathology, labeled as esophagus. The remainder of the esophagus appeared mildly inflamed overall, but with no other areas of ulceration or nodularity. The scope was removed, and this portion of the procedure terminated. The patient was placed in the left lateral decubitus position. A digital rectal exam was performed. This exam was within normal limits. A well-lubricated colonoscope was inserted in the rectum and advanced carefully under direct visualization to the level of the cecum. The patient had a large amount of liquid stool in her colon, requiring several liters worth of irrigation in order for me to safely pass the scope through. The cecum was identified by visual and anatomic landmarks. Again, a large amount of irrigation was required to be able to visualize these structures. Once the irrigation was done, a photograph was taken of the cecal cap. However, I was unable to retroflex the scope within the cecum, due to looping of the scope more proximally. The scope was then straightened out and fully withdrawn while examining the color, texture, anatomy, and integrity of the mucosa from the cecum to the anal canal. On a close inspection of the cecum, there appeared to be a very tiny AVM in the cecal cap. It is unclear if this was a true AVM or just a small telangiectasia. There was no stigmata of recent bleed, and there was no scabbing over the top of the lesion. Albeit, I did have to irrigate heavily in order to visualize this and may have washed away the scab. The remainder of the colon was closely inspected. On reaching the rectum at the rectosigmoid junction, 2 polyps were noted. The rectal polyp #1 was pedunculated and removed using a cold snare. Rectal polyp #2 was flat and sessile. This was removed using a cold biopsy forceps in piecemeal fashion. The remainder of the colon appeared normal. I did not note any diverticula. The scope was brought into the rectum and retroflexed to allow visualization of the anal canal opening. This appeared normal, and a photograph was taken. The scope was then straightened out and fully withdrawn. The [id number] time was greater than 6 minutes. The patient tolerated the procedure well and was taken to the PACU in stable condition. ENDOSCOPIC DIAGNOSES: 1. Duodenal polyp. 2. Severe esophagitis, secondary to reflux. 3. Cecal arteriovenous malformation. 4. Rectal polyp x2. RECOMMENDATIONS: The patient will need to be started on 40 mg of pantoprazole daily for her severe esophagitis. She can resume a regular diet. If she remains stable, the patient can be discharged from my standpoint by the Medicine Team tomorrow. She should follow up with me in clinic in 2 weeks. VALERIE WHITE /[id number]
--- NOTE | 2018-06-25 12:08 | PCM.SN ---
- Free Text/Narrative Note: Patient is doing well this morning. She has no complaints. Will follow up in clinic in 2 weeks. Needs to be on pantoprazole 40mg daily. Call with questions or concerns.
== END 2018-06-25 16:45 | disposition home or self-care (01) | DRG 377 ==
LOC: MW.ED 16:22 → MW.MS 17:24
PROVIDERS: ADMIT Internal Medicine; ATTEND Internal Medicine
PROC: 30233N1 Transfusion of Nonautologous Red Blood Cells into Peripheral Vein, Percutaneous Approach (ICD-10-PCS; principal; 2018-06-22)
PROC: 0DB68ZX Excision of Stomach, Via Natural or Artificial Opening Endoscopic, Diagnostic (ICD-10-PCS; 2018-06-24)
PROC: 0DB78ZX Excision of Stomach, Pylorus, Via Natural or Artificial Opening Endoscopic, Diagnostic (ICD-10-PCS; 2018-06-24)
PROC: 0DB98ZX Excision of Duodenum, Via Natural or Artificial Opening Endoscopic, Diagnostic (ICD-10-PCS; 2018-06-24)
PROC: 0DB48ZX Excision of Esophagogastric Junction, Via Natural or Artificial Opening Endoscopic, Diagnostic (ICD-10-PCS; 2018-06-24)
PROC: 0DBP8ZZ Excision of Rectum, Via Natural or Artificial Opening Endoscopic (ICD-10-PCS; 2018-06-24)
DX: R19.7 Diarrhea, unspecified (principal); K62.5 Hemorrhage of anus and rectum; K92.2 Gastrointestinal hemorrhage, unspecified; J18.9 Pneumonia, unspecified organism; D64.9 Anemia, unspecified; D62 Acute posthemorrhagic anemia; J44.1 Chronic obstructive pulmonary disease with (acute) exacerbation; N17.9 Acute kidney failure, unspecified; N18.4 Chronic kidney disease, stage 4 (severe); K55.20 Angiodysplasia of colon without hemorrhage; K63.5 Polyp of colon; K62.1 Rectal polyp; K21.0 Gastro-esophageal reflux disease with esophagitis; D50.9 Iron deficiency anemia, unspecified; E03.9 Hypothyroidism, unspecified; F17.210 Nicotine dependence, cigarettes, uncomplicated; E86.0 Dehydration; Z91.040 Latex allergy status; Z91.048 Other nonmedicinal substance allergy status; Z91.14 Patient's other noncompliance with medication regimen
CPT/HCPCS: 36415; 36430; 71045; 71045-26; 80053; 82272; 83605; 83690; 84439; 84443; 85014; 85018; 85025; 85610; 85730; 86850; 86900; 86901; 86920; 86921; 86922; 87040; 87804; 88305; 88312; 93005; 96361; 96365; 96375; 99285-25; A9270-GY; C9113; J0696; J1200; J2250; J2704; J3010; J7030; J7040; J7050; P9016

== ENCOUNTER 2018-12-24 09:58 | Day surgery (SDC) | payer MEDICARE ==
[~2018-12-24 09:58] MED LIST: Albuterol/Ipratropium 3.0-0.5 MG/3 ML Neb Soln ONE; EPINEPHrine 1 MG/ML SDV ONE; Lactated Ringers 1,000 ML IV SCH; Sodium Chloride 0.9% 10 ML SDV IV PRN; Sodium Chloride 0.9% 10 ML Syringe FLUSH PRN; Sodium Chloride 0.9% 2.5 ML Syringe FLUSH PRN; diphenhydrAMINE 50 MG/ML SDV ONE; methylPREDNISolone Sodium Succinate 125 MG/2 ML SDV ONE
[2018-12-24] MEDS ORDERED: Propofol 200 MG/20 ML SDV ONE (10:30)
[2018-12-24] MEDS ORDERED: Lidocaine 2% 100 MG/5 ML Syringe ONE (10:30)
--- NOTE | 2018-12-24 10:35 | PCM.PREANE ---
Preanesthetic Assessment - Anesthesia/Transfusion/Family Hx Anesthesia History: Prior Anesthesia Without Reaction Family History of Anesthesia Reaction: No Transfusion History: Prior Transfusion Without Reaction - Review of Systems General: No Symptoms Pulmonary: No Symptoms Cardiovascular: No Symptoms Other: Reports: Anxiety - Physical Assessment NPO Status Date: 12/23/18 Height: 5 ft 7 in Weight: 65.771 kg ASA Class: 2 Mental Status: Alert & Oriented x3 Airway Class: Mallampati = 2 Dentition: Reports: Dentures (lower) ROM/Head Extension: Full Lungs: Clear to Auscultation, Normal Respiratory Effort Cardiovascular: Regular Rate, Regular Rhythm - Allergies Allergies/Adverse Reactions: Allergies Allergy/AdvReac Type Severity Reaction Status Date / Time adhesive tape Allergy Itching Verified 12/23/18 09:10 codeine Allergy Nausea Verified 12/23/18 09:10 Latex, Natural Rubber Allergy Itching Verified 12/19/18 14:36 - Blood Blood Available: No - Anesthesia Plan Pre-Op Medication Ordered: None - Acknowledgements Anesthesia Type Planned: General Anesthesia Pt an Appropriate Candidate for the Planned Anesthesia: Yes Alternatives and Risks of Anesthesia Discussed w Pt/Guardian: Yes Pt/Guardian Understands and Agrees with Anesthesia Plan: Yes Additional Comments: PMH: anxiety, gerd, thyroid replacement, smoker PLAN: tiva PreAnesthesia Questionnaire HEENT History: Other HEENT History: wears glasses, top denture Cardiovascular History: Reports: Hypertension Respiratory History: Reports: COPD Gastrointestinal History: Reports: GERD, GI Bleed Genitourinary History: Reports: Other (See Below) Other Genitourinary History: states renal failure due to her anemia Musculoskeletal History: Reports: None Neurological History: Reports: None Psychiatric History: Reports: None Endocrine/Metabolic History: Reports: Hypothyroidism Hematologic History: Reports: Anemia, Blood Transfusion(s) Immunologic History: Reports: None Oncologic (Cancer) History: Reports: None Dermatologic History: Reports: None - Infectious Disease History Infectious Disease History: Reports: Chicken Pox, Measles, Mumps - Past Surgical History Head Surgeries/Procedures: Reports: None HEENT Surgical History: Reports: Oral Surgery Cardiovascular Surgical History: Reports: None Respiratory Surgical History: Reports: None GI Surgical History: Reports: Colonoscopy, EGD Female Surgical History: Reports: None Endocrine Surgical History: Reports: None Neurological Surgical History: Reports: None Musculoskeletal Surgical History: Reports: None Oncologic Surgical History: Reports: None Dermatological Surgical History: Reports: None - SUBSTANCE USE Smoking Status *Q: Current Every Day Smoker Tobacco Use Within Last Twelve Months: Cigarettes Recreational Drug Use History: No - HOME MEDS Home Medications: Home Meds Ascorbic Acid [Vitamin C] 1,000 mg CHEW DAILY 12/23/18 [History] Fluticasone/Salmeterol [Advair 500-50] 2 puff INH BID PRN 12/23/18 [History] Iron,Carbonyl/Vit C/Vit B12/Fa [Iron 100 Plus Tablet] 1 each PO BID 12/23/18 [ History] Levothyroxine Sodium [Synthroid] 50 mcg PO DAILY 12/23/18 [History] Pantoprazole [ProTONIX] 40 mg PO DAILY 12/23/18 [History] - CURRENT (IN HOUSE) MEDS Current Meds: Current Medications Lactated Ringer's (Ringers, Lactated) 1,000 mls @ 125 mls/hr IV ASDIRECTED [facility] Sodium Chloride (Saline Flush) 10 ml FLUSH ASDIRECTED PRN PRN Reason: Keep Vein Open Sodium Chloride (Saline Flush) 2.5 ml FLUSH ASDIRECTED PRN PRN Reason: Keep Vein Open Sodium Chloride (Normal Saline) 10 ml IV ASDIRECTED PRN PRN Reason: IV Use Discontinued Medications Albuterol/Ipratropium (Duoneb 3.0-0.5 Mg/3 Ml) Confirm Administered Dose 3 ml .ROUTE .STK-MED ONE Stop: 12/23/18 23:17 Diphenhydramine HCl (Benadryl) Confirm Administered Dose 50 mg .ROUTE .STK-MED ONE Stop: 12/23/18 23:17 Epinephrine HCl (Adrenalin) Confirm Administered Dose 1 mg .ROUTE .STK-MED ONE Stop: 12/23/18 23:17 Lidocaine HCl (Xylocaine 2%) Confirm Administered Dose 100 mg .ROUTE .STK-MED ONE Stop: 12/24/18 10:31 Methylprednisolone Sodium Succinate (Solu-Medrol) Confirm Administered Dose 125 mg .ROUTE .STK-MED ONE Stop: 12/23/18 23:17 Propofol (Diprivan 20 Ml) Confirm Administered Dose 400 mg .ROUTE .STK-MED ONE Stop: 12/24/18 10:31
--- NOTE | 2018-12-24 11:27 | PCM.OPNOTE ---
- General Post-Op/Procedure Note Date of Surgery/Procedure: 12/24/18 Operative Procedure(s): Diagnostic EGD with biopsy Findings: Esophagitis Pre Op Diagnosis: Esophagitis Post-Op Diagnosis: same Anesthesia Technique: MAC Primary Surgeon: Keya Baeza Condition: Good
--- NOTE | 2018-12-24 11:32 | PCM.POSTAN ---
POST ANESTHESIA ASSESSMENT - MENTAL STATUS Mental Status: Alert, Oriented - VITAL SIGNS Vital Signs: Last Vital Signs Temp 98.4 F 12/24/18 10:30 Pulse 66 12/24/18 11:16 Resp 15 12/24/18 11:16 BP 146/88 H 12/24/18 11:16 Pulse Ox 99 12/24/18 11:16 - RESPIRATORY Respiratory Status: Respiratory Rate WNL, Airway Patent, O2 Saturation Stable - CARDIOVASCULAR CV Status: Pulse Rate WNL, Blood Pressure Stable - GASTROINTESTINAL GI Status: No Symptoms - POST OP HYDRATION Hydration Status: Adequate & Stable
--- NOTE | 2018-12-24 11:33 | PCM48HPAN ---
Post Anesthesia Note - EVALUATION WITHIN 48HRS OF ANESTHETIC Vital Signs in Normal Range: Yes Patient Participated in Evaluation: Yes Respiratory Function Stable: Yes Airway Patent: Yes Cardiovascular Function Stable: Yes Hydration Status Stable: Yes Pain Control Satisfactory: Yes Nausea and Vomiting Control Satisfactory: Yes Mental Status Recovered: Yes Vital Signs: Last Vital Signs Temp 98.4 F 12/24/18 10:30 Pulse 66 12/24/18 11:16 Resp 15 12/24/18 11:16 BP 146/88 H 12/24/18 11:16 Pulse Ox 99 12/24/18 11:16
--- NOTE | 2018-12-29 16:52 | OR ---
SURGEON: KEYA BAEZA MD DATE OF PROCEDURE: 12/24/2018 PREOPERATIVE DIAGNOSIS: History of esophagitis. POSTOPERATIVE DIAGNOSIS: History of esophagitis. PROCEDURE PERFORMED: Diagnostic esophagogastroduodenoscopy with biopsy. PRIMARY SURGEON: Keya Baeza MD. ANESTHESIA: MAC. INSTRUMENT USED: Olympus endoscope. EXTENT OF EXAM: To the second portion of duodenum. PREPARATION: Good. LIMITATIONS: None. INDICATIONS FOR EXAMINATION: The patient is a 68-year-old female who was recently diagnosed with severe esophagitis. She has been on a PPI since her first EGD. She is here for a repeat EGD to see if this is improving. The patient and I discussed the procedure; expected perioperative course; and risks including bleeding, infection, or damage to surrounding structures including perforation. The patient verbalized understanding and wishes to proceed. PROCEDURE IN DETAIL: The patient was brought into the endoscopy suite and placed in a beach chair position. A time-out was completed verifying the patient's name, age, date of , allergies, and procedure to be performed. A bite block was placed in the patient's mouth and monitored anesthesia care was induced. Continuous oxygen was provided via nasal cannula throughout the procedure. After adequate sedation was achieved, a well-lubricated endoscope was placed in the patient's mouth and advanced under direct visualization to the second portion of the duodenum. This appeared normal and a photograph was taken. The scope was then straightened out and fully withdrawn while examining the color, texture, anatomy, and integrity of the mucosa of the upper GI tract. The duodenum appeared normal. The scope was brought into the stomach and a photograph was taken of pylorus and GE junction. There was no evidence of any gross ulceration or inflammation of the stomach. The scope was brought into the distal esophagus. The patient appeared to still have signs of esophagitis and a photograph was taken. Biopsies were then taken of the esophageal mucosa and sent to pathology. The remainder of the esophagus appeared normal. The scope was removed and the procedure terminated. The patient tolerated the procedure well and was taken to the PACU in stable condition. ENDOSCOPIC DIAGNOSIS: Esophagitis. RECOMMENDATIONS: Follow up in clinic in 2 weeks. VALERIE WHITE /[id number]
== END 2018-12-24 12:00 | disposition home or self-care (01) ==
LOC: MW.SDS 09:58
PROVIDERS: ATTEND Surgery
DX: K21.0 Gastro-esophageal reflux disease with esophagitis (principal); K22.11 Ulcer of esophagus with bleeding; K55.20 Angiodysplasia of colon without hemorrhage; I10 Essential (primary) hypertension; E03.9 Hypothyroidism, unspecified; J44.9 Chronic obstructive pulmonary disease, unspecified; D64.9 Anemia, unspecified; F17.210 Nicotine dependence, cigarettes, uncomplicated; Z88.5 Allergy status to narcotic agent; Z91.040 Latex allergy status; Z91.048 Other nonmedicinal substance allergy status; Z79.51 Long term (current) use of inhaled steroids; Z79.899 Other long term (current) drug therapy
CPT/HCPCS: 43239; 88305; J2001; J2704; J7120

== ENCOUNTER 2021-10-05 08:39 | Day surgery (SDC) | payer MEDICARE ==
[~2021-10-05 08:39] MED LIST changes: -Albuterol/Ipratropium 3.0-0.5 MG/3 ML Neb Soln ONE; -EPINEPHrine 1 MG/ML SDV ONE; +Propofol 200 MG/20 ML SDV ONE; -Sodium Chloride 0.9% 10 ML SDV IV PRN; +Sodium Chloride 0.9% 20 ML SDV IV PRN; -diphenhydrAMINE 50 MG/ML SDV ONE; +fentaNYL 100 MCG/2 ML SDV ONE; -methylPREDNISolone Sodium Succinate 125 MG/2 ML SDV ONE
[2021-10-05] MEDS ORDERED: Sodium Chloride 0.9% 1,000 ML IV SCH (09:30)
[2021-10-05] MEDS ORDERED: Propofol 200 MG/20 ML SDV ONE ×2 (09:57→10:12)
[2021-10-05] MEDS ORDERED: ePHEDrine 50 MG/ML SDV ONE (10:28)
== END 2021-10-05 11:50 | disposition home or self-care (01) ==
LOC: MW.SDS 08:39
PROVIDERS: ATTEND Surgery
DX: D12.3 Benign neoplasm of transverse colon (principal); K22.10 Ulcer of esophagus without bleeding; K31.89 Other diseases of stomach and duodenum; K31.A0 Gastric intestinal metaplasia, unspecified; K44.9 Diaphragmatic hernia without obstruction or gangrene; K64.9 Unspecified hemorrhoids; D50.9 Iron deficiency anemia, unspecified; K21.00 Gastro-esophageal reflux disease with esophagitis, without bleeding; K55.20 Angiodysplasia of colon without hemorrhage; K29.80 Duodenitis without bleeding; J44.9 Chronic obstructive pulmonary disease, unspecified; I12.9 Hypertensive chronic kidney disease with stage 1 through stage 4 chronic kidney disease, or unspecified chronic kidney disease; N18.4 Chronic kidney disease, stage 4 (severe); E03.9 Hypothyroidism, unspecified; F17.210 Nicotine dependence, cigarettes, uncomplicated; Z91.040 Latex allergy status; Z88.5 Allergy status to narcotic agent; Z91.048 Other nonmedicinal substance allergy status; Z91.09 Other allergy status, other than to drugs and biological substances; Z79.51 Long term (current) use of inhaled steroids; Z79.899 Other long term (current) drug therapy; Z79.890 Hormone replacement therapy; Z98.890 Other specified postprocedural states
CPT/HCPCS: 43239; 45380; J2704; J3010; J7030; 00813; 99100